=== PATIENT | male | born 1985 | race Caucasian/White ===

== ENCOUNTER 2018-07-09 13:30 | Outpatient (RCR) | payer OTHER, SELFPAY ==
--- NOTE | 2018-02-13 11:03 | OT.OP.EVAL ---
Visit Care Team Role Provider Type Alverto Watson MD Attending Provider Non-Staff Primary Care Provider Specialty: Family Practice Address: [address] [place] [address], [facility] [address], [place], [address] Email: Occupational Therapy Initial Evaluation OT Outpatient Adult Evaluation Start: 02/13/18 09:50 Freq: Status: Active Protocol: Document 02/13/18 09:51 AMS (Rec: 02/13/18 11:02 AMS [email or web address]) General Information Visit Start Time 08:28 Visit Stop Time 09:30 Total Visit Minutes 62 Visit Number 08/22 Plan of Care Dates 02/13/18- 05/08/18 Insurance Information 12 visits/units authorized Treatment Setting Outpatient Care Note Type Initial Evaluation Referring Physician Alverto Watson MD Reason for Referral Residual weakness in right UE. Evaluate & treat as appropriate. Precautions Complex migraine Identification Confirmed Yes: Medical chart Patient Concerns Clicking of right wrist w/ movement, motor coordination Patient Goals Improve function of right hand Medical History Pt is a 32 year-old male referred to outpatient OT status post complex migraine which led to residual weakness of the pt's dominant right upper extremity. Pt reported that he was unable to move his right arm for 3 days while being hospitalized at [facility]. He stated that 'he never lost sensation' of his right arm during this time. Health History reviewed and placed in paper chart. PMH: Headaches, complex migraine, surgery (turboplasty, septoplasty, jaw surgery). Previous Therapy/Therapies Yes History of Therapy Pt is being seen by PT 2 x per week to address proximal UE strength/ROM. 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 Current HEP: arm pulleys, finger walks on wall, resistance band for strengthening (ER, elbow flexion, elbow ext, shoulder ext, scapular pinches/row), and green theraputty for glass laminating operator strengthening. Social History Pt resides with and 11 year-old son in [place], [place] . Therapy Pain Assessment When Pain Assessed Pre-tx Pain Present Pain Reported Right Arm Intensity 2 Scale Used Numeric (1 - 10) Pain Behaviors Facial Grimacing Guarding Holding Area ADLs Comments Increased time; compensatory strategies utilized. Increased reliance L UE. IADLs Comments Impaired. Compensatory strategies. Increased reliance L UE. Vocational Ability Working 40+ hours. [employer]. Completing mostly paperwork tasks since onset of complex migraine. Decreased legibility of handwriting. Pt reported that handwriting legibility 'is worse now'. Skill Level Impaired Meaningful Abilities Pt reports that he is unable to use a pick in his right hand to play the guitar. 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 Decreased legibility of handwriting. Skill Level Impaired Range of Motion Impairments Right UE: Forearm supination, forearm pronation, wrist UD, wrist RD, wrist ext, and wrist flex WNL. Neurological Assessment - Adult Comments Impaired R hand function. Able to oppose thumb to all digit pads bilaterally. Increased concentration required particularly w/ R wrist in extension; decreased speed noted without visual feedback provided. Tendency towards R wrist flexion pattern w/ object manipulation and/or motor planning of the digits of the R hand. Sensation Assessment Summary Comments Pt denied any changes in sensation of R UE. In-Hand Manipulation Right Level of Ability Impaired Level of Ability Impaired Level of Ability Impaired Level of Ability Impaired Level of Ability Impaired Elbow/Forearm Strength Elbow and Forearm Manual Muscle Testing Right Pronation 3+ Fair+ Supination 3 Fair Left Pronation 5 Normal Supination 5 Normal Wrist Strength Wrist Manual Muscle Testing Right Flexion (C7) 3 Fair Extension (C6) 3 Fair Ulnar Deviation 3 Fair Radial Deviation 3 Fair Left Flexion (C7) 5 Normal Extension (C6) 5 Normal Ulnar Deviation 5 Normal Radial Deviation 5 Normal Menu Planner/Hand Strength Menu Planner/Hand Strength Right Menu Planner Dynamometer II 23.3 Lateral Pinch Strengh (lbs) 5.3 Tip Pinch Strength (lbs) 3.0 Comments Lateral Hernandez Pinch: 30-34 Males R hand norms = 26.4 +/- 4.8 ( pounds) Tip Pinch: 30-34 Males R hand norms = 17.6 +/- 6.7 (pounds) Left Menu Planner Dynamometer II 107.3 Lateral Pinch Strengh (lbs) 23.3 Tip Pinch Strength (lbs) 15.0 Comments Lateral Hernandez Pinch: 30-34 Males L hand norms = 26.2 +/- 5.1 ( pounds) Tip Pinch: 30-34 Males L hand norms = 17.6 +/- 4.8 (pounds) 9-Hole Peg Hand Test Hand Right Date of Test 02/13/18 Interpretation Impaired Comments Scoring time = 31.5 sec Performance was > 5 SD above the mean when compared to same aged peers. 30-34 Males R hand norms = 17. 7 +/- 2.5 Left Date of Test 02/13/18 Comments Scoring time = 22.3 sec Performance was > 1 SD above the mean when compared to same aged peers. 30-34 Males L hand norms = 18. 7 +/- 2.2 Goals Treatment Therapeutic exercises. Distal R UE strengthening program initiated. Provided theraband #1 for home use. Reviewed importance of avoidance of compensatory strategies. Forearm supination/pronation strengthening w/ hammer w/ short lever arm w/ elbow in 90 degrees flexion. Wrist ext w/ forearm pronation elbow 90 degrees flex; wrist flex w/ forearm in neutral elbow 90 degrees flex; wrist RD forearm neutral elbow 90 degrees flex ; wrist UD forearm pronation supported on TT w/ elbow 90 degrees flex. Pt denied questions. Education also provided for in-hand manipulation exercises. Pt denied questions. Short Term Goals 1. Patient will complete QuickDASH UE Questionnaire Measures for therapist. 2. Patient will be able to complete the 9-Hole Peg Test with the right hand under 26.0 seconds. 3. Patient will be able to execute passive right wrist flexion stretch, with elbow near full extension and forearm in supination, x 2 separate trials, holding position for 3 seconds, without complaints of pain/ discomfort. 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 Based on patient's verbal report, patient will be able to play personal guitar x 5 minutes with modified independence utilizing pick positioned in the right hand. 2. Patient will be able to complete the 9-Hole Peg Test with the right hand under 22.0 seconds. 3. 5/5 MMT right wrist flexion 4. 5/5 MMT right wrist extension 5. 5/5 MMT right forearm supination 6. Patient will be modified independent with distal UE home exercise program utilizing provided written and visual instructions from therapist. Assessment/Plan Patient Response Good Rehabilitation Potential Good Impairments Identified ADLs Coordination/Dexterity Functional Activities Motor Function Pain Weakness Range of Motion Recreational Activities Meaningful Activities Stiffness Motor Planning Eye-Hand Coordination Treatment Assessment Pt is a 32 year-old male referred to outpatient OT status post complex migraine which led to residual weakness of the pt's dominant right upper extremity. Pt reported that he was unable to move his right arm for 3 days while being hospitalized at [facility]. He stated that 'he never lost sensation' of his right arm during this time. PMH: Headaches, complex migraine, surgery (turboplasty, septoplasty, jaw surgery). Pt is seeing PT 2 x a week for proximal UE strengthening. 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 Current Level of Function: Increased time w/ BADLS w/ increased reliance on L UE. Decreased legibility of handwriting. Unable to use pick in right hand and play guitar on daily basis. Decreased coordination w/ object manipulation/tool use ( e.g., use of paint brush). Evaluation Findings: Decreased ability to efficiently and successfully participate in daily activities/meaningful activities; impaired motor coordination; clicking of wrist w/ movement; impaired in -hand manipulation skills; decreased joint sense; decreased distal UE strength; and pain/discomfort of R UE. Outpatient OT recommended to address these areas so that pt may successfully return to PLOF w/ engagement in daily and meaningful activities in the home and community environments. Home Exercise Program Distal R UE strengthening program initiated. Provided theraband #1 for home use. Reviewed importance of avoidance of compensatory strategies. Forearm supination /pronation strengthening w/ hammer w/ short lever arm w/ elbow in 90 degrees flexion. Wrist ext w/ forearm pronation elbow 90 degrees flex; wrist flex w/ forearm in neutral elbow 90 degrees flex; wrist RD forearm neutral elbow 90 degrees flex; wrist UD forearm pronation supported on TT w/ elbow 90 degrees flex. Pt denied questions. Education also provided for in-hand manipulation exercises. Pt denied questions. Reviewed with Patient Goals Home Exercise Program Patient Understanding Good Comment 12 weeks Treatment Frequency Twice a Week Therapeutic Contents Active Range of Motion Client Education Functional Activities Home Exercise Program Manual Therapy Education Neurodevelopment Treatment Neuromuscular Re-Education Therapeutic Activities Therapeutic Exercises Modalities Modalities As Needed Additional Types of Modalities e-stim, ultrasound, FES Patient Instruction Home Exercise Program Plan of Care Questions/Concerns Other
--- NOTE | 2018-02-16 12:12 | OT.OP.TRT ---
Visit Care Team Role Provider Type Alverto Watson MD Attending Provider Non-Staff Primary Care Provider Specialty: Family Practice Address: [address] [place] [address], [address], [facility] Email: Occupational Therapy Treatment Note OT Outpatient Treatment Note - Adult Start: 02/13/18 09:50 Freq: Status: Active Protocol: Document 02/16/18 11:44 AMS (Rec: 02/16/18 11:50 AMS [id number]) OT Outpatient Adult Treatment Note Session Time Visit Start Time 09:30 Visit Stop Time 10:16 Total Visit Minutes 46 Visit Information Visit Number 09/22 Plan of Care Dates 02/13/18- 05/08/18 Insurance Information 12 visits/units authorized Setting Treatment Setting Outpatient Care Visit Type Note Type Treatment Note General Information General Information Pt is a 32 year-old male referred to outpatient OT status post complex migraine which led to residual weakness of the pt's dominant right upper extremity. Pt reported that he was unable to move his right arm for 3 days while being hospitalized at [facility]. He stated that 'he never lost sensation' of his right arm during this time. - Subjective Identification Type Name Identification Reconciled With Medical Record Observations My arm is on fire this morning per Jagjit. I did my exercises this weekend. Chief Complaint(s) Restricts Loss of Function Moderate Degree Effect on Activity Moderate Degree Effect on Daily Life Moderate Degree Patient Expectation/Goals Improve function of right hand Patient/Caregiver Compliance with Home Good Exercise Program - Objective Objective Measurements Increased discomfort elbow --> distally of R UE; patient reported that he thinks he must have slept wrong on the arm. Decreased ability to sustain pressure w/ opposition between digits particularly 3rd, 4th and 5th digits (5th the most difficult). (+) clicking of wrist noted w/ wrist circles, wrist flexion w / forearm supination without proximal blocking by therapist . Please see below for progress towards meeting established OT goals. QuickDASH UE Outcome Measure Score = 47.73 QuickDASH UE Work Module Score = 50.00 QuickDASH UE Sports/Perfomring Arts Module Score = 56.25 ( guitar, quintero, violin, piano) Short Term Goals 1. Patient will be able to complete the 9-Hole Peg Test with the right hand under 26.0 seconds. 2. Patient will be able to execute passive right wrist flexion stretch, with elbow near full extension and forearm in supination, x 2 separate trials, holding position for 3 seconds, without complaints of pain/ discomfort. 02/16/18= 25% met 3. Based on patient's verbal report, he will be able to open a tight/new jar with the right hand without difficulty on a daily basis. GOALS MET Patient completed QuickDASH UE Questionnaire Measures. *MET 02/16/18 [facility] Goals 1. Based on patient's verbal report, patient will be able to play personal guitar x 5 minutes with modified independence utilizing pick positioned in the right hand. 2. Patient will be able to complete the 9-Hole Peg Test with the right hand under 22.0 seconds. 3. 5/5 MMT right wrist flexion 4. 5/5 MMT right wrist extension 5. 5/5 MMT right forearm supination 6. Patient will be modified independent with distal UE home exercise program utilizing provided written and visual instructions from therapist. [ End ] - Treatment 2 Descriptor HEP Complexity Upgraded 1 Descriptor Right hand/digit motor planning w/ objects Sustained opposition TT hummingbirds - each digit Modifications Required Yes Complexity Upgraded Exercises 9 Descriptor Resistant clothespins Don and doff Side Right Body Position Sitting Sets 2 Repetitions 50 Modifications Required Yes Complexity Upgraded 8 Descriptor Weighted ball pass Drop catch/alt positions Side Both Body Position Sitting Sets 3 Repetitions 10 Resistance 1.1# spherical ball Tolerance Fair Modifications Required Yes Complexity Upgraded 7 Descriptor Digiflex Wrist ext/forearm supported on TT Side Right Body Position Sitting Sets 1 Repetitions 10 cycles Resistance 3.0# Complexity Upgraded 6 Descriptor Wrist Flexion Forearm supination support on arm rest Side Right Body Position Sitting Sets 3 Repetitions 10 Resistance 1.1# spherical ball Tolerance Fair Modifications Required Yes Complexity Upgraded [address]/UD Forearm supported on TT Side Right Body Position Sitting Sets 3 Repetitions 10 Resistance 1.1# spherical ball Tolerance Fair Modifications Required Yes Complexity Upgraded 4 Descriptor Wrist Extension Forearm supported on TT Side Right Body Position Sitting Sets 3 Repetitions 10 Resistance 1.1# spherical ball Tolerance Fair Modifications Required Yes Complexity Upgraded 3 Descriptor Supination/Pronation Arm by side Side Right Body Position Sitting Sets 3 Repetitions 10 Resistance 1.1# spherical ball Modifications Required Yes Complexity Upgraded 2 Descriptor PROM of distal UE Completed by therapist Side Right Tolerance Fair Modifications Required Yes Complexity Upgraded 1 Descriptor PROM of distal UE Forearm supination Wrist extension Side Right Visual Cues Min Cues Verbal Cues Min Cues Tolerance Fair Modifications Required Yes Complexity No Change - Assessment Patient Response to Treatment Good Rehab Potential Good Impairments Identified ADLs Coordination/Dexterity Functional Activities Motor Function Pain Weakness Range of Motion Recreational Activities Meaningful Activities Stiffness Soft Tissue Mobility Motor Planning Eye-Hand Coordination Assessment of Improvement Increased discomfort elbow --> distally of R UE; patient reported that he thinks he must have slept wrong on the arm. Decreased ability to sustain pressure w/ opposition between digits particularly 3rd, 4th and 5th digits (5th the most difficult). Improved ability to passively stretch wrist flexors, as evidenced by increased extension of elbow and ability to sustain position. However, still unable to fully extend digits of R hand and elbow flexion still apparent w/ stretch. Decreased motor planning of the right hand. Decreased hand /digit strength. (+) carry- over of home exercise program. Decreased ability to participate in meaningful activities in the home, work and community environments. Increased reliance on left UE/ hand. Home Exercise Program Upgraded HEP w/ focus on object manipulation and addressing sustained opposition. Patient denied questions. No further changes were made to HEP given increased pain/discomfort R elbow --> distally. Reviewed with Patient/Caregiver Goals Progress Being Made Home Exercise Program Patient/Caregiver Understanding Good - Plan Therapy Recommendations Continue with Current Program Advance per Rehabilitation Protocol Additional Therapy Recommendations Consult w/ PT
--- NOTE | 2018-02-26 14:20 | OT.OP.TRT ---
Visit Care Team Role Provider Type Alverto Watson MD Attending Provider Non-Staff Primary Care Provider Specialty: Family Practice Address: [address] [place] [address], [address], On license of [facility] Email: Occupational Therapy Treatment Note OT Outpatient Treatment Note - Adult Start: 02/13/18 09:50 Freq: Status: Active Protocol: Document 02/26/18 13:54 AMS (Rec: 02/26/18 14:20 AMS [email or web address]) OT Outpatient Adult Treatment Note Session Time Visit Start Time 12:30 Visit Stop Time 13:18 Total Visit Minutes 48 Visit Information Visit Number 10/20 Plan of Care Dates 02/13/18- 05/08/18 Insurance Information 12 visits/units authorized Setting Treatment Setting Outpatient Care Visit Type Note Type Treatment Note General Information General Information Pt is a 32 year-old male referred to outpatient OT status post complex migraine which led to residual weakness of the pt's dominant right upper extremity. Pt reported that he was unable to move his right arm for 3 days while being hospitalized at [facility]. He stated that 'he never lost sensation' of his right arm during this time. - Subjective Identification Type Name Identification Reconciled With Medical Record Observations I haven't even tried the violin yet per Jagjit. I have been working on this arm at home. I still don't have an appointment for a neurologist; I am waiting on my doctor. Chief Complaint(s) Restricts Loss of Function Moderate Degree Effect on Activity Moderate Degree Effect on Daily Life Moderate Degree Patient Expectation/Goals Improve function of right hand Patient/Caregiver Compliance with Home Good Exercise Program - Objective Objective Measurements Improving ability to sustain pressure w/ opposition between digits; has progressed to maintaining pressure w/ active flexion and extension of each digit w/ thumb. Patient indicated that his 1st, 2nd and 3rd digits are improving relative to motor coordination ; however, he is still having trouble coordinating the 4th and 5th digits. Education completed in re: functional grasps/development of 2 sides of hand/functional daily tasks . Increasing distal UE strength noted; thus, exercises advanced. Decreased speed of motor response with the right hand; increased concentration required w/ object manipulation. Decreased inhand manipulation skills w/ decreased motor coordination w/ wrist in extension. Please see below for progress towards meeting established OT goals. 02/16/18 QuickDASH UE Outcome Measure Score = 47.73 QuickDASH UE Work Module Score = 50.00 QuickDASH UE Sports/Perfomring Arts Module Score = 56.25 ( guitar, quintero, violin, piano) Short Term Goals 1. Patient will be able to complete the 9-Hole Peg Test with the right hand under 26.0 seconds. 2. Patient will be able to execute passive right wrist flexion stretch, with elbow near full extension and forearm in supination, x 2 separate trials, holding position for 3 seconds, without complaints of pain/ discomfort. 02/26/18= 25% met 3. Based on patient's verbal report, he will be able to open a tight/new jar with the right hand without difficulty on a daily basis. GOALS MET Patient completed QuickDASH UE Questionnaire Measures. 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 Based on patient's verbal report, patient will be able to play personal guitar x 5 minutes with modified independence utilizing pick positioned in the right hand. 02/26/18= 25% met 2. Patient will be able to complete the 9-Hole Peg Test with the right hand under 22.0 seconds. 02/26/18= 25% met 3. 5/5 MMT right wrist flexion 4. 5/5 MMT right wrist extension 5. 5/5 MMT right forearm supination 6. Patient will be modified independent with distal UE home exercise program utilizing provided written and visual instructions from therapist. 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 Toothpicks Separation of 2 sides of hand Modifications Required Yes Complexity Upgraded Exercises 9 Descriptor Resistant clothespins Side Right Body Position Sitting Sets 2 Repetitions 50 Modifications Required Yes Complexity No Change 8 Descriptor Weighted ball work Eye-hand coordination work 1.1 # 3 x 10 each (in front/to the right of body) Pick-up and drop 3.3# 2 x 10 / 2.2# 1x 10 (spherical grasp) Pick-up and drop 2.2# 2 x 10 ( cylindrical grasp) Side Right Body Position Sitting Tolerance Fair Modifications Required Yes Complexity Upgraded 7 Descriptor Digiflex Wrist ext/forearm supported on TT Side Right Body Position Sitting Sets 1 Repetitions 10 cycles Resistance 3.0# Complexity Upgraded 6 Descriptor Wrist Flexion Forearm supination support on arm rest Side Right Body Position Sitting Sets 3 Repetitions 10 Resistance 2.2# spherical ball Tolerance Fair Modifications Required Yes Complexity Upgraded [address]/UD Forearm supported on TT Side Right Body Position Sitting Sets 3 Repetitions 10 Resistance 2.2# spherical ball Tolerance Fair Modifications Required Yes Complexity Upgraded 4 Descriptor Wrist Extension Forearm supported on TT Side Right Body Position Sitting Sets 3 Repetitions 10 Resistance 2.2# spherical ball Tolerance Fair Modifications Required Yes Complexity Upgraded 3 Descriptor Supination/Pronation Arm by side Side Right Body Position Sitting Sets 3 Repetitions 10 Resistance 2.2# spherical ball Modifications Required Yes Complexity Upgraded 2 Descriptor PROM of distal UE Side Right Tolerance Fair Modifications Required Yes Complexity No Change 1 Descriptor PROM of distal UE Forearm supination Wrist extension Side Right Visual Cues Min Cues Verbal Cues Min Cues Tolerance Fair Modifications Required Yes Complexity No Change - Assessment Patient Response to Treatment Good Rehab Potential Good Impairments Identified ADLs Coordination/Dexterity Functional Activities Motor Function Pain Weakness Range of Motion Recreational Activities Meaningful Activities Stiffness Soft Tissue Mobility Motor Planning Eye-Hand Coordination Assessment of Overall Progress Improving Assessment of Improvement Patient indicated that his 1st , 2nd and 3rd digits are improving relative to motor coordination; however, he is still having trouble coordinating the 4th and 5th digits. Increasing distal UE strength compared to previous treatment session; however, (+ ) fatigue and decreased ability to sustain manipulation of objects > 2.2# in weight repetitively without rest breaks with and without proximal upper extremity support. Decreased speed of motor response with the right hand; increased concentration required w/ object manipulation. Decreased eye-hand coordination. Decreased inhand manipulation skills w/ decreased motor coordination w/ wrist in extension. Please see below for progress towards meeting established OT goals. Home Exercise Program Upgraded HEP; instructed on individual digit strengthening and focusing on ulnar side of hand/multiple object manipulation. Pt denied questions. Reviewed with Patient/Caregiver Goals Progress Being Made Home Exercise Program Patient/Caregiver Understanding Good - Plan Therapy Recommendations Continue with Current Program Advance per Rehabilitation Protocol Additional Therapy Recommendations Consult w/ PT
--- NOTE | 2018-03-13 12:24 | OT.OP.TRT ---
Visit Care Team Role Provider Type Alverto Watson MD Attending Provider Non-Staff Primary Care Provider Specialty: Family Practice Address: [address] [place] [address], [address], [facility] Email: Occupational Therapy Treatment Note OT Outpatient Treatment Note - Adult Start: 02/13/18 09:50 Freq: Status: Active Protocol: Document 03/12/18 03:20 AMS (Rec: 03/13/18 12:24 AMS [email or web address]) OT Outpatient Adult Treatment Note Session Time Visit Start Time 14:20 Visit Stop Time 15:10 Total Visit Minutes 50 Visit Information Visit Number [id number] Plan of Care Dates 02/13/18- 05/08/18 Insurance Information 12 visits/units authorized Setting Treatment Setting Outpatient Care Visit Type Note Type Treatment Note General Information General Information Pt is a 32 year-old male referred to outpatient OT status post complex migraine which led to residual weakness of the pt's dominant right upper extremity. Pt reported that he was unable to move his right arm for 3 days while being hospitalized at [facility]. He stated that 'he never lost sensation' of his right arm during this time. - Subjective Identification Type Name Identification Reconciled With Medical Record Observations I am still having a hard time with my fingers especially the fourth and fifth fingers. They do not do what I tell them to do per Jagjit. Chief Complaint(s) Restricts Loss of Function Moderate Degree Effect on Activity Moderate Degree Effect on Daily Life Moderate Degree Patient Expectation/Goals Improve function of right hand Patient/Caregiver Compliance with Home Good Exercise Program - Objective Objective Measurements Improving ability to sustain pressure w/ opposition between digits; has progressed to maintaining pressure w/ active flexion and extension of each digit w/ thumb. Patient indicated that his 1st, 2nd and 3rd digits are improving relative to motor coordination ; however, he is still having trouble coordinating the 4th and 5th digits. Decreased separation of 2 sides of hand; decreased eye-hand coordination and reaction time w/ the right hand. Decreased speed and efficiency w/ motor planning between 2 tasks and w / ability to maintain reaction time/efficiency w/ consecutive repetitions when utilizing the right hand. Please see below for progress towards meeting established OT goals. 02/16/18 QuickDASH UE Outcome Measure Score = 47.73 QuickDASH UE Work Module Score = 50.00 QuickDASH UE Sports/Perfomring Arts Module Score = 56.25 ( guitar, quintero, violin, piano) Short Term Goals 1. Patient will be able to complete the 9-Hole Peg Test with the right hand under 26.0 seconds. 2. Patient will be able to execute passive right wrist flexion stretch, with elbow near full extension and forearm in supination, x 2 separate trials, holding position for 3 seconds, without complaints of pain/ discomfort. 03/12/18= 50% met 3. Based on patient's verbal report, he will be able to open a tight/new jar with the right hand without difficulty on a daily basis. GOALS MET Patient completed QuickDASH UE Questionnaire Measures. *MET 02/16/18 Secretary Administrative Assistant Goals 1. Based on patient's verbal report, patient will be able to play personal guitar x 5 minutes with modified independence utilizing pick positioned in the right hand. 03/12/18= 25% met 2. Patient will be able to complete the 9-Hole Peg Test with the right hand under 22.0 seconds. 02/26/18= 25% met 3. 5/5 MMT right wrist flexion 4. 5/5 MMT right wrist extension 5. 5/5 MMT right forearm supination 6. Patient will be modified independent with distal UE home exercise program utilizing provided written and visual instructions from therapist. [ End ] - Treatment 2 Descriptor HEP Complexity Upgraded 1 Descriptor Object manipulation Get-a-tying in machine operator - R/above head Separation of 2 sides of hand Washers Small pegs Modifications Required Yes Complexity Upgraded Exercises 9 Descriptor Resistant clothespins Right of body Side Right Body Position Sitting Sets 2 Repetitions 50 Modifications Required Yes Complexity Upgraded 8 Descriptor Eye-hand coordination Weighted ball 3.3# *Forearm neutral *Forearm supination *Forearm pronation Side Right Body Position Sitting Tolerance Good Modifications Required Yes Complexity Upgraded 6 Descriptor Wrist Flexion Forearm supination support on arm rest Side Right Body Position Sitting Sets 3 Repetitions 10 Resistance 2.2# spherical ball Tolerance Fair Modifications Required Yes Complexity Upgraded [address]/UD Forearm supported on TT Side Right Body Position Sitting Sets 3 Repetitions 10 Resistance 2.2# spherical ball Tolerance Fair Modifications Required Yes Complexity Upgraded 4 Descriptor Wrist Extension Forearm supported on TT Side Right Body Position Sitting Sets 3 Repetitions 10 Resistance 2.2# spherical ball Tolerance Fair Modifications Required Yes Complexity Upgraded 3 Descriptor Supination/Pronation Arm by side Side Right Body Position Sitting Sets 3 Repetitions 10 Resistance 2.2# spherical ball Modifications Required Yes Complexity Upgraded 1 Descriptor PROM of distal UE Forearm supination Wrist extension Side Right Visual Cues Min Cues Verbal Cues Min Cues Tolerance Fair Modifications Required Yes Complexity No Change - Assessment Patient Response to Treatment Good Rehab Potential Good Impairments Identified ADLs Coordination/Dexterity Functional Activities Motor Function Pain Weakness Range of Motion Recreational Activities Meaningful Activities Stiffness Soft Tissue Mobility Motor Planning Eye-Hand Coordination Assessment of Overall Progress Improving Assessment of Improvement Patient indicated that his 1st , 2nd and 3rd digits are improving relative to motor coordination; however, he is still having trouble coordinating the 4th and 5th digits. Decreased speed of motor response with the right hand; increased concentration required w/ object manipulation. Decreased eye- hand coordination. Decreased inhand manipulation skills w/ decreased motor coordination w / wrist in extension. (+) tendency towards forearm supination with multiple object manipulation. Decreased separation of digits w/ motor planning as needed w/ playing musical instruments. Home Exercise Program Upgraded HEP. Focus on functional coordination and ability to motor plan without use of compensatory strategies . Increased focus on motor planning without visual feedback and w/ UE in different positions. Pt denied questions. Reviewed with Patient/Caregiver Goals Progress Being Made Home Exercise Program Patient/Caregiver Understanding Good - Plan Therapy Recommendations Continue with Current Program Advance per Rehabilitation Protocol Additional Therapy Recommendations Consult w/ PT
--- NOTE | 2018-03-27 13:58 | OT.OP.TRT ---
Visit Care Team Role Provider Type Alverto Watson MD Attending Provider Non-Staff Primary Care Provider Specialty: Family Practice Address: [address] [place] [address], [address], [facility] Email: Occupational Therapy Treatment Note OT Outpatient Treatment Note - Adult Start: 02/13/18 09:50 Freq: Status: Active Protocol: Document 03/26/18 03:30 AMS (Rec: 03/27/18 13:58 AMS [email or web address]) OT Outpatient Adult Treatment Note Session Time Visit Start Time 14:40 Visit Stop Time 15:30 Total Visit Minutes 50 Visit Information Visit Number 12/20 Plan of Care Dates 02/13/18- 05/08/18 Insurance Information 12 visits/units authorized Setting Treatment Setting Outpatient Care Visit Type Note Type Treatment Note General Information General Information Pt is a 32 year-old male referred to outpatient OT status post complex migraine which led to residual weakness of the pt's dominant right upper extremity. Pt reported that he was unable to move his right arm for 3 days while being hospitalized at [facility]. He stated that 'he never lost sensation' of his right arm during this time. - Subjective Identification Type Name Identification Reconciled With Medical Record Observations After visit summary March 18, 2018. Result Impression: No acute infarct, intracranial mass lesion, or hemorrhage. No perfusion deficit. Prominent area of T1 hyperintensity in the pituitary gland with hypoenhancement. This finding is incompletely evaluated on this exam but could possibly represent a microadenoma. Clinical correlation for an endocrinopathy is recommended. Plan: EMG; continue PT/OT. Per Jagjit, EMG indicated compression of the median nerve and that the DO wanted him to wear 'a brace at night' and 'avoid repetitive wrist movements'. Chief Complaint(s) Restricts Loss of Function Moderate Degree Effect on Activity Moderate Degree Effect on Daily Life Moderate Degree Patient Expectation/Goals Improve function of right hand Patient/Caregiver Compliance with Home Good Exercise Program - Objective Objective Measurements Max difficulty w/ execution of R flat fist; decreased active extension of DIP joints primarily of the 4th and 5th digits. Decreased active flexion of PIPJ of 2-5 digits of the R hand in comparison to left hand. Pt continues to have difficulty coordinating the 4th and 5th digits. Decreased separation of 2 sides of hand; decreased eye- hand coordination and reaction time w/ the right hand. Reproduction of symptoms w/ familiar nerve gliding exercises primarily w/ wrist extension. However it is important to note patient was initially unable to complete PROM wrist exercises w/ near full elbow extension and forearm supination (wrist flexion). Please see below for progress towards meeting established OT goals. 02/16/18 QuickDASH UE Outcome Measure Score = 47.73 QuickDASH UE Work Module Score = 50.00 QuickDASH UE Sports/Perfomring Arts Module Score = 56.25 ( guitar, quintero, violin, piano) Short Term Goals 1. Patient will be able to complete the 9-Hole Peg Test with the right hand under 26.0 seconds. 2. Patient will be able to execute passive right wrist flexion stretch, with elbow near full extension and forearm in supination, x 2 separate trials, holding position for 3 seconds, without complaints of pain/ discomfort. 03/26/18= 50% met 3. Based on patient's verbal report, he will be able to open a tight/new jar with the right hand without difficulty on a daily basis. GOALS MET Patient completed QuickDASH UE Questionnaire Measures. *MET 02/16/18 Production Laborer Goals 1. Based on patient's verbal report, patient will be able to play personal guitar x 5 minutes with modified independence utilizing pick positioned in the right hand. 03/26/18= 25% met 2. Patient will be able to complete the 9-Hole Peg Test with the right hand under 22.0 seconds. 02/26/18= 25% met 3. 5/5 MMT right wrist flexion 4. 5/5 MMT right wrist extension 5. 5/5 MMT right forearm supination 6. Patient will be modified independent with distal UE home exercise program utilizing provided written and visual instructions from therapist. 03/26/18= 25% met [ End ] - Treatment 2 Descriptor HEP Flat fist work Nerve glides Separation of 2 sides of hand Complexity Upgraded 1 Descriptor Object manipulation Get-a-toy painter 2 sides of hand Washers Small pegs Tendon glides Modifications Required Yes Complexity Upgraded Exercises 9 Descriptor Resistant clothespins Right of body Side Right Body Position Sitting Sets 2 Repetitions 50 Modifications Required Yes Complexity Upgraded 8 Descriptor Eye-hand coordination Weighted ball 3.3# *Forearm neutral *Forearm supination *Forearm pronation Side Right Body Position Sitting Tolerance Good Modifications Required Yes Complexity No Change [address]/UD Side Right Body Position Sitting Sets 3 Repetitions 10 Resistance 3.3# spherical ball Tolerance Fair Modifications Required Yes Complexity Upgraded 4 Descriptor Wrist Extension Side Right Body Position Sitting Sets 3 Repetitions 10 Resistance 3.3# spherical ball Tolerance Fair Modifications Required Yes Complexity Upgraded 3 Descriptor Supination/Pronation Arm by side Side Right Body Position Sitting Sets 3 Repetitions 10 Resistance 3.3# spherical ball Modifications Required Yes Complexity Upgraded 1 Descriptor PROM of distal UE Side Right Visual Cues Min Cues Verbal Cues Min Cues Tolerance Fair Modifications Required Yes Complexity No Change - Assessment Patient Response to Treatment Good Rehab Potential Good Impairments Identified ADLs Coordination/Dexterity Functional Activities Motor Function Pain Weakness Range of Motion Recreational Activities Meaningful Activities Stiffness Soft Tissue Mobility Motor Planning Eye-Hand Coordination Assessment of Overall Progress Improving Assessment of Improvement Decreased speed of motor response with the right hand; increased concentration required w/ object manipulation. Decreased eye- hand coordination. Decreased inhand manipulation skills w/ decreased motor coordination w / wrist in extension. (+) tendency towards forearm supination with multiple object manipulation. Decreased separation of digits w/ motor planning as needed w/ playing musical instruments. Decreased ability to execute tendon gliding exercises. Home Exercise Program Please see above for additional details. Reviewed with Patient/Caregiver Goals Progress Being Made Home Exercise Program Patient/Caregiver Understanding Good - Plan Therapy Recommendations Continue with Current Program Advance per Rehabilitation Protocol Additional Therapy Recommendations Consult w/ PT
--- NOTE | 2018-04-21 13:43 | OT.OP.TRT ---
Visit Care Team Role Provider Type Alverto Watson MD Attending Provider Non-Staff Primary Care Provider Specialty: Family Practice Address: [address] [place] [address], [address], [facility] Email: Occupational Therapy Treatment Note OT Outpatient Treatment Note - Adult Start: 02/13/18 09:50 Freq: Status: Active Protocol: Document 04/21/18 13:28 AMS (Rec: 04/21/18 13:43 AMS [email or web address]) OT Outpatient Adult Treatment Note Session Time Visit Start Time 12:30 Visit Stop Time 13:48 Total Visit Minutes 48 Visit Information Visit Number 01/20 Plan of Care Dates 02/13/18- 05/08/18 Insurance Information 12 visits/units authorized Setting Treatment Setting Outpatient Care Visit Type Note Type Treatment Note General Information General Information Pt is a 32 year-old male referred to outpatient OT status post complex migraine which led to residual weakness of the pt's dominant right upper extremity. Pt reported that he was unable to move his right arm for 3 days while being hospitalized at [facility]. He stated that 'he never lost sensation' of his right arm during this time. - Subjective Identification Type Name Identification Reconciled With Medical Record Observations I have MRIs on Friday. I have a contrast and noncontrast MRI. I have been wearing the splints at night per Jagjit. Chief Complaint(s) Restricts Loss of Function Moderate Degree Effect on Activity Moderate Degree Effect on Daily Life Moderate Degree Patient Expectation/Goals Improve function of right hand Patient/Caregiver Compliance with Home Good Exercise Program - Objective Objective Measurements Min difficulty w/ execution of R flat fist; however, able to execute w/ decreased pressure applied to the palm through fingertips 2-5 particularly through the 4th and 5th. Decreased active flexion of PIPJ of 2-5 digits of the R hand in comparison to left hand. Unable to execute active DIPJ flexion of digits of R hand w/ palm on TT; slight flex noted of 1,2,3. No flex noted w/ 4 and 5. Unable to maintain w/ [id number]. Unable to palm standard basketball w/ R compared to PLOF. Decreased separation of 2 sides of hand; decreased eye -hand coordination and reaction time w/ the right hand. Please see below for progress towards meeting established OT goals. 02/16/18 QuickDASH UE Outcome Measure Score = 47.73 QuickDASH UE Work Module Score = 50.00 QuickDASH UE Sports/Perfomring Arts Module Score = 56.25 ( guitar, quintero, violin, piano) Short Term Goals 1. Patient will be able to complete the 9-Hole Peg Test with the right hand under 26.0 seconds. 2. Patient will be able to execute passive right wrist flexion stretch, with elbow near full extension and forearm in supination, x 2 separate trials, holding position for 3 seconds, without complaints of pain/ discomfort. 04/21/18= 50% met; min c/o pain 3. Based on patient's verbal report, he will be able to open a tight/new jar with the right hand without difficulty on a daily basis. 04/21/18= 25% met. GOALS MET Patient completed QuickDASH UE Questionnaire Measures. *MET 02/16/18 Penitentiary Goals 1. Based on patient's verbal report, patient will be able to play personal guitar x 5 minutes with modified independence utilizing pick positioned in the right hand. 04/21/18= 25% met 2. Patient will be able to complete the 9-Hole Peg Test with the right hand under 22.0 seconds. 02/26/18= 25% met 3. 5/5 MMT right wrist flexion 4. 5/5 MMT right wrist extension 5. 5/5 MMT right forearm supination 6. Patient will be modified independent with distal UE home exercise program utilizing provided written and visual instructions from therapist. 04/21/18= 25% met [ End ] - Treatment 2 Descriptor HEP Palming bball DIPJ flex w/ palm on TT Pressing fingertips into palm w/ flat fist Complexity Upgraded 1 Descriptor Object manipulation Get-a-data entry manager 2 sides of hand Small pegs Tendon glides Modifications Required Yes Complexity Upgraded Exercises 9 Descriptor Resistant clothespins Right of body Side Right Body Position Sitting Sets 2 Repetitions 50 Modifications Required Yes Complexity No Change 8 Descriptor Eye-hand coordination Weighted ball 4.4# Trampoline 2 x 10 500 gm 2 x 10 Side Right Body Position Sitting Tolerance Good Modifications Required Yes Complexity Upgraded 6 Descriptor Wrist Flexion Forearm supination support on arm rest Side Right Body Position Sitting Sets 3 Repetitions [address]/UD Side Right Body Position Sitting Sets 3 Repetitions 10 Resistance 3.3# spherical ball Tolerance Fair Modifications Required Yes Complexity No Change 4 Descriptor Wrist Extension Side Right Body Position Sitting Sets 3 Repetitions 10 Resistance 4.4# spherical ball Tolerance Fair Modifications Required Yes Complexity Upgraded 3 Descriptor Supination/Pronation Arm by side Side Right Body Position Sitting Sets 3 Repetitions 10 Resistance 4.4# spherical ball Modifications Required Yes Complexity Upgraded 1 Descriptor PROM of distal UE Side Right Visual Cues Min Cues Verbal Cues Min Cues Tolerance Fair Modifications Required Yes Complexity No Change - Assessment Patient Response to Treatment Good Rehab Potential Good Impairments Identified ADLs Coordination/Dexterity Functional Activities Motor Function Pain Weakness Range of Motion Recreational Activities Meaningful Activities Stiffness Soft Tissue Mobility Motor Planning Eye-Hand Coordination Assessment of Overall Progress Improving Assessment of Improvement Increased concentration required w/ object manipulation; decreased coordination compared to PLOF. Decreased in-hand manipulation skills w/ decreased motor coordination w / wrist in extension. (+) decreasing forearm supination with multiple object manipulation; however, continued need to work on translation and palmar object manipulation. Decreased separation of digits w/ motor planning as needed w/ playing musical instruments. Decreased ability to execute isolated tendon gliding exercises. Upgrading of HEP. Home Exercise Program Please see treatment section above for additional details. Pt denied questions. Reviewed with Patient/Caregiver Goals Progress Being Made Home Exercise Program Patient/Caregiver Understanding Good - Plan Therapy Recommendations Continue with Current Program Advance per Rehabilitation Protocol Additional Therapy Recommendations Consult w/ PT
--- NOTE | 2018-04-30 08:21 | OT.OP.TRT ---
Visit Care Team Role Provider Type Alverto Watson MD Attending Provider Non-Staff Primary Care Provider Specialty: Family Practice Address: [address] [place] [address], [address], [facility] Email: Occupational Therapy Treatment Note OT Outpatient Treatment Note - Adult Start: 02/13/18 09:50 Freq: Status: Active Protocol: Document 04/28/18 03:30 AMS (Rec: 04/30/18 08:21 AMS [email or web address]) OT Outpatient Adult Treatment Note Session Time Visit Start Time 12:30 Visit Stop Time 13:21 Total Visit Minutes 51 Visit Information Visit Number [id number] Plan of Care Dates 02/13/18- 05/08/18 Insurance Information 12 visits/units authorized Setting Treatment Setting Outpatient Care Visit Type Note Type Treatment Note General Information General Information Pt is a 32 year-old male referred to outpatient OT status post complex migraine which led to residual weakness of the pt's dominant right upper extremity. Pt reported that he was unable to move his right arm for 3 days while being hospitalized at [facility]. He stated that 'he never lost sensation' of his right arm during this time. - Subjective Identification Type Name Identification Reconciled With Medical Record Observations I broke the MRI machine. I had to come back on Friday to get the MRIs done per Jagjit. Chief Complaint(s) Restricts Loss of Function Moderate Degree Effect on Activity Moderate Degree Effect on Daily Life Moderate Degree Patient Expectation/Goals Improve function of right hand Patient/Caregiver Compliance with Home Good Exercise Program - Objective Objective Measurements Initiated proprioceptive/ kinesthetic treatment approach to digits 4/5 for flat fist; (+) response to treatment w/ ability to execute flat fist w / engagement of 4th and 5th digits w/ increased concentration and effort (5th digit slight PIPJ flex initially). Improving active flexion of PIPJ of 2-5 digits of the R hand. Unable to execute active DIPJ flexion of digits of R hand w/ palm on TT; flex noted of 2,3. Slight flex 4 and 5 following initiated resisted/ proprioceptive/kinesthetic exercises. Continued decreased separation of 2 sides of hand , as evidenced by increased concentration required w/ management of multiple objects . Please see below for progress towards meeting established OT goals. 02/16/18 QuickDASH UE Outcome Measure Score = 47.73 QuickDASH UE Work Module Score = 50.00 QuickDASH UE Sports/Perfomring Arts Module Score = 56.25 ( guitar, quintero, violin, piano) Short Term Goals 1. Patient will be able to complete the 9-Hole Peg Test with the right hand under 26.0 seconds. 2. Patient will be able to execute passive right wrist flexion stretch, with elbow near full extension and forearm in supination, x 2 separate trials, holding position for 3 seconds, without complaints of pain/ discomfort. 04/28/18= 50% met; min c/o pain 3. Based on patient's verbal report, he will be able to open a tight/new jar with the right hand without difficulty on a daily basis. 04/28/18= 25% met. GOALS MET Patient completed QuickDASH UE Questionnaire Measures. 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 Based on patient's verbal report, patient will be able to play personal guitar x 5 minutes with modified independence utilizing pick positioned in the right hand. 04/28/18= 25% met 2. Patient will be able to complete the 9-Hole Peg Test with the right hand under 22.0 seconds. 02/26/18= 25% met 3. 5/5 MMT right wrist flexion 4. 5/5 MMT right wrist extension 5. 5/5 MMT right forearm supination 6. Patient will be modified independent with distal UE home exercise program utilizing provided written and visual instructions from therapist. 04/28/18= 25% met; HEP upgraded [ End ] - Treatment 2 Descriptor HEP Upgraded quarter/senior control systems engineer object between digits w/ shift L<->R hand. Complexity Upgraded 1 Descriptor Object manipulation Get-a-form layer 2 sides of hand Small pegs Tendon glides Chip L<->R shift Modifications Required Yes Complexity Upgraded Exercises 11 Descriptor Kinesthetic 4th/5th digits Side Right Body Position Sitting Complexity Upgraded 10 Descriptor Proprioceptive 4th/5th digits Side Right Body Position Sitting Complexity Upgraded 9 Descriptor Resistant clothespins 3 at 1 time Side Right Body Position Sitting Sets 2 Repetitions 50 Modifications Required Yes Complexity Upgraded 8 Descriptor Eye-hand coordination Weighted ball 4.4# Trampoline 2 x 10 500 gm 2 x 10 Side Right Body Position Sitting Tolerance Good Modifications Required Yes Complexity Upgraded [address]/UD Side Right Body Position Sitting Sets 3 Repetitions 10 Resistance 4.4# spherical ball Tolerance Fair Modifications Required Yes Complexity Upgraded 4 Descriptor Wrist Ext/Flex Side Right Body Position Sitting Sets 3 Repetitions 10 Resistance 4.4# spherical ball Tolerance Fair Modifications Required Yes Complexity No Change 3 Descriptor Supination/Pronation Arm by side Side Right Body Position Sitting Sets 3 Repetitions 10 Resistance 4.4# spherical ball Modifications Required Yes Complexity No Change 1 Descriptor PROM of distal UE Side Right Visual Cues Min Cues Verbal Cues Min Cues Tolerance Fair Modifications Required Yes Complexity No Change - Assessment Patient Response to Treatment Good Rehab Potential Good Impairments Identified ADLs Coordination/Dexterity Functional Activities Motor Function Pain Weakness Range of Motion Recreational Activities Meaningful Activities Stiffness Soft Tissue Mobility Motor Planning Eye-Hand Coordination Assessment of Overall Progress Improving Assessment of Improvement Increased concentration required w/ object manipulation; decreased coordination of R hand/UE compared to PLOF. Decreased in -hand manipulation skills. Decreased awareness of 4th/5th digits in space; positive response to proprioceptive feedback to 4th and 5th digits w/ flat fist. Positive response to proprioceptive/ kinesthetic feedback to 4th and 5th digits w/ isolated DIPJ flexion w/ palm on table. Based on response, recommend continuation of proprioceptive /kinesthetic approach to rehabilitation. Decreased ability to grade force and isolate motor planning of digits as needed for return to meaningful activities ( playing of musical instruments ). Home Exercise Program Please see treatment section above for additional details. Pt denied questions. Reviewed with Patient/Caregiver Goals Progress Being Made Home Exercise Program Patient/Caregiver Understanding Good - Plan Therapy Recommendations Continue with Current Program Advance per Rehabilitation Protocol Additional Therapy Recommendations Consult w/ PT Occupational Therapy Assessment OT Outpatient Muscle Testing Start: 02/13/18 09:50 Freq: Status: Active Protocol: Document 04/28/18 03:30 AMS (Rec: 04/30/18 08:21 AMS [email or web address]) Elbow/Forearm Strength Elbow and Forearm Manual Muscle Testing Right Pronation 3+ Fair+ Supination 3 Fair Left Pronation 5 Normal Supination 5 Normal Wrist Strength Wrist Manual Muscle Testing Right Flexion (C7) 3 Fair Extension (C6) 3 Fair Ulnar Deviation 3 Fair Radial Deviation 3 Fair Left Flexion (C7) 5 Normal Extension (C6) 5 Normal Ulnar Deviation 5 Normal Radial Deviation 5 Normal Art Tracer/Hand Strength Art Tracer/Hand Strength Right Art Tracer Dynamometer II 23.3 Lateral Pinch Strengh (lbs) 5.3 Tip Pinch Strength (lbs) 3.0 Comments Lateral Hernandez Pinch: 30-34 Males R hand norms = 26.4 +/- 4.8 ( pounds) Tip Pinch: 30-34 Males R hand norms = 17.6 +/- 6.7 (pounds) Left Art Tracer Dynamometer II 107.3 Lateral Pinch Strengh (lbs) 23.3 Tip Pinch Strength (lbs) 15.0 Comments Lateral Hernandez Pinch: 30-34 Males L hand norms = 26.2 +/- 5.1 ( pounds) Tip Pinch: 30-34 Males L hand norms = 17.6 +/- 4.8 (pounds) Occupational Therapy Assessment OT Outpatient Standardized Assessments Start: 02/13/18 09:50 Freq: Status: Active Protocol: Document 04/28/18 03:30 AMS (Rec: 04/30/18 08:21 AMS [email or web address]) 9-Hole Peg Hand Test Hand Right Date of Test 02/13/18 Interpretation Impaired Comments Scoring time = 31.5 sec Performance was > 5 SD above the mean when compared to same aged peers. 30-34 Males R hand norms = 17. 7 +/- 2.5 Left Date of Test 02/13/18 Comments Scoring time = 22.3 sec Performance was > 1 SD above the mean when compared to same aged peers. 30-34 Males L hand norms = 18. 7 +/- 2.2
--- NOTE | 2018-05-05 16:44 | OT.OP.TRT ---
Visit Care Team Role Provider Type Alverto Watson MD Attending Provider Non-Staff Primary Care Provider Specialty: Family Practice Address: [address] [place] [address], [address], [facility] Email: Occupational Therapy Treatment Note OT Outpatient Treatment Note - Adult Start: 02/13/18 09:50 Freq: Status: Active Protocol: Document 05/05/18 16:19 AMS (Rec: 05/05/18 16:44 AMS [email or web address]) OT Outpatient Adult Treatment Note Session Time Visit Start Time 12:30 Visit Stop Time 13:20 Total Visit Minutes 50 Visit Information Visit Number 03/[id number] Plan of Care Dates 02/13/18- 05/08/18 Insurance Information 12 visits/units authorized Setting Treatment Setting Outpatient Care Visit Type Note Type Treatment Note General Information General Information Pt is a 32 year-old male referred to outpatient OT status post complex migraine which led to residual weakness of the pt's dominant right upper extremity. Pt reported that he was unable to move his right arm for 3 days while being hospitalized at [facility]. He stated that 'he never lost sensation' of his right arm during this time. - Subjective Identification Type Name Identification Reconciled With Medical Record Observations I am still waiting on the results of my MRI. This wrist still cracks no matter what direction I move it in. I still wear the brace if it really is bothering me per Jagjit. Chief Complaint(s) Restricts Loss of Function Moderate Degree Effect on Activity Moderate Degree Effect on Daily Life Moderate Degree Patient Expectation/Goals Improve function of right hand Patient/Caregiver Compliance with Home Good Exercise Program - Objective Objective Measurements Initiated proprioceptive/ kinesthetic treatment approach to digits 4 and 5 for separation of the 2 sides of the hand given h/o positive response to ability to execute flat fist w/ this treatment approach. Decreased ability to isolate flexion of digits; (+ ) tension of all digits when addressing digit isolation. (+ ) response to pad work w/ improved ability to isolate bear claw to 'cage' w/ maintaining heel of hand on TT . Improving fine motor coordination and strength of distal UE; please refer to 9- Hole Peg test and MMT test results. Please see below for progress towards meeting established OT goals. 02/16/18 QuickDASH UE Outcome Measure Score = 47.73 QuickDASH UE Work Module Score = 50.00 QuickDASH UE Sports/Perfomring Arts Module Score = 56.25 ( guitar, quintero, violin, piano) Short Term Goals 1. Based on patient's verbal report, he will be able to open a tight/new jar with the right hand without difficulty on a daily basis. 04/28/18= 25% met. 2. Patient will be able to weight shift L <-> R over top of the right hand in plank position x 10 consecutive repetitions, without locking of elbow in extension, without complaints of pain/discomfort and/or loss of balance. = NEW GOAL GOALS MET Patient completed QuickDASH UE Questionnaire Measures. *MET 02/16/18 Pt completed 9-Hole Peg Test under 26.0 sec w/ the R hand. *MET 05/05/18 Pt able to execute PROM wrist flexion stretch, w/ elbow ext and forearm supinated, x 2 w/ hold of position x 3 sec w/ c/ o stiffness only in wrist. 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 Based on patient's verbal report, patient will be able to play personal guitar x 5 minutes with modified independence utilizing pick positioned in the right hand. 05/05/18= 25% met 2. Patient will be able to complete the 9-Hole Peg Test with the right hand under 18.0 seconds. 05/05/18= GOAL UPGRADED 3. 5/5 MMT right wrist flexion . 05/05/18= 4/5 4. 5/5 MMT right wrist extension. 05/05/18= 4/5 5. Patient will be modified independent with distal UE home exercise program utilizing provided written and visual instructions from therapist. 05/05/18= 25% met; HEP upgraded GOALS MET 5/5 MMT R forearm supination. *MET 05/05/18 [ End ] - Treatment 2 Descriptor HEP Weight shift over palm in plank position; modified chair dip w/ weight shift L <-> R over palm. Isolation of digits w/ movement - relaxation of digits not included in motor plan. Complexity Upgraded 1 Modifications Required Yes Complexity Upgraded Exercises 12 Descriptor Weight shift over R hand Plank position L<->R Modified dip L<->R Side Both Sets 1 Repetitions 5 Complexity Upgraded 11 Descriptor Kinesthetic exercises Individual digits Separation of 2 sides of hand Side Right Body Position Sitting Complexity Upgraded 10 Descriptor Proprioceptive exercises Individual digits of the R hand Separation of 2 sides of hand Side Right Body Position Sitting Complexity Upgraded 9 Descriptor Resistant clothespins 3 at 1 time Side Right Body Position Sitting Sets 2 Repetitions 50 Modifications Required Yes Complexity Upgraded 6 Descriptor Wrist Flexion Forearm supination support on arm rest Side Right Body Position Sitting Sets 3 Repetitions [address]/UD Side Right Body Position Sitting Sets 3 Repetitions 10 Resistance 4.4# spherical ball Tolerance Fair Modifications Required Yes Complexity Upgraded 4 Descriptor Wrist Ext/Flex Side Right Body Position Sitting Sets 3 Repetitions 10 Resistance 4.4# spherical ball Tolerance Fair Modifications Required Yes Complexity No Change 3 Descriptor Supination/Pronation Arm by side Side Right Body Position Sitting Sets 3 Repetitions 10 Resistance 4.4# spherical ball Modifications Required Yes Complexity No Change 1 Descriptor PROM of distal UE Side Right Visual Cues Min Cues Verbal Cues Min Cues Tolerance Fair Modifications Required Yes Complexity No Change - Assessment Patient Response to Treatment Good Rehab Potential Good Impairments Identified ADLs Coordination/Dexterity Functional Activities Motor Function Pain Weakness Range of Motion Recreational Activities Meaningful Activities Stiffness Soft Tissue Mobility Motor Planning Eye-Hand Coordination Assessment of Overall Progress Improving Assessment of Improvement Improving fine motor coordination of the R hand. Improving distal R UE strength . Decreased wrist stabilization; (-) ability to weight shift R <-> L in various positions (plank, modified dip). Decreased separation of digits w/ movement compared to PLOF; decreased ability to actively and successfully engage in meaningful activities when compared to PLOF. Continued positive response to resisted proprioceptive/kinesthetic exercises/activities prior to motor planning. (+) frustration that coordination is not to PLOF. Upgrading of HEP. Home Exercise Program Please see treatment section above for additional details. Pt denied questions. Reviewed with Patient/Caregiver Goals Progress Being Made Home Exercise Program Patient/Caregiver Understanding Good - Plan Therapy Recommendations Continue with Current Program Advance per Rehabilitation Protocol Additional Therapy Recommendations Complete re-eval; consult w/ PT Occupational Therapy Assessment OT Outpatient Muscle Testing Start: 02/13/18 09:50 Freq: Status: Active Protocol: Document 05/05/18 16:19 AMS (Rec: 05/05/18 16:44 AMS [email or web address]) Elbow/Forearm Strength Elbow and Forearm Manual Muscle Testing Right Pronation 5 Normal Supination 5 Normal Comments New measurements taken on 05/05 Left Pronation 5 Normal Supination 5 Normal Wrist Strength Wrist Manual Muscle Testing Right Flexion (C7) 4 Good Extension (C6) 4 Good Ulnar Deviation 4 Good Radial Deviation 5 Normal Comments Measurements re-taken 05/05/18 Left Flexion (C7) 5 Normal Extension (C6) 5 Normal Ulnar Deviation 5 Normal Radial Deviation 5 Normal Installer Molding And Trim/Hand Strength Installer Molding And Trim/Hand Strength Left Installer Molding And Trim Dynamometer II 107.3 Lateral Pinch Strengh (lbs) 23.3 Tip Pinch Strength (lbs) 15.0 Comments Lateral Hernandez Pinch: 30-34 Males L hand norms = 26.2 +/- 5.1 ( pounds) Tip Pinch: 30-34 Males L hand norms = 17.6 +/- 4.8 (pounds)
--- NOTE | 2018-05-15 16:29 | OT.OP.REEVAL ---
Visit Care Team Role Provider Type Alverto Watson MD Attending Provider Non-Staff Primary Care Provider Address: [address] [place] [address], [place] [address], [place], [address] Email: OT Outpatient OT Outpatient Adult Evaluation Start: 02/13/18 09:50 Freq: Status: Active Protocol: Document 02/13/18 09:51 AMS (Rec: 02/13/18 11:02 AMS [email or web address]) General Information Session Time Visit Start Time 08:28 Visit Stop Time 09:30 Total Visit Minutes 62 Visit Information Visit Number 08/[id number] Plan of Care Dates 02/13/18- 05/08/18 Insurance Information 12 visits/units authorized Setting Treatment Setting Outpatient Care Visit Type Note Type Initial Evaluation Referral Referring Physician Alverto Watson MD Reason for Referral Residual weakness in right UE. Evaluate & treat as appropriate. Precautions Complex migraine Identification Identification Confirmed Yes: Medical chart Patient Patient Concerns Clicking of right wrist w/ movement, motor coordination Patient Goals Improve function of right hand Medical Information Medical History Pt is a 32 year-old male referred to outpatient OT status post complex migraine which led to residual weakness of the pt's dominant right upper extremity. Pt reported that he was unable to move his right arm for 3 days while being hospitalized at [facility]. He stated that 'he never lost sensation' of his right arm during this time. Health History reviewed and placed in paper chart. PMH: Headaches, complex migraine, surgery (turboplasty, septoplasty, jaw surgery). Previous Therapy Previous Therapy/Therapies Yes History of Therapy Pt is being seen by PT 2 x per week to address proximal UE strength/ROM. 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 Current HEP: arm pulleys, finger walks on wall, resistance band for strengthening (ER, elbow flexion, elbow ext, shoulder ext, scapular pinches/row), and green theraputty for heel nailing machine operator strengthening. Social Information Social History Pt resides with and 11 year-old son in [place], [place] . Therapy Pain Assessment Pain When Pain Assessed Pre-tx Pain Present Pain Present Pain Reported Location Right Arm Intensity 2 Scale Used Numeric (1 - 10) Pain Behaviors Facial Grimacing Guarding Holding Area ADLs Overall Ability Comments Increased time; compensatory strategies utilized. Increased reliance L UE. IADLs Overall Function Comments Impaired. Compensatory strategies. Increased reliance L UE. 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 Completing mostly paperwork tasks since onset of complex migraine. Decreased legibility of handwriting. Pt reported that handwriting legibility 'is worse now'. Skill Level Impaired Meaningful Activities Meaningful Abilities Pt reports that he is unable to use a pick in his right hand to play the guitar. Decreased coordination w/ object manipulation/tool use ( e.g., use of paint brush); modifying heel nailing machine operator and utilizing gross grasp pattern. Decreased legibility of handwriting. Skill Level Impaired Range of Motion Upper Extremity/Lower Extremity Impairments Right UE: Forearm supination, forearm pronation, wrist UD, wrist RD, wrist ext, and wrist flex WNL. Neurological Assessment - Adult Coordination Comments Impaired R hand function. Able to oppose thumb to all digit pads bilaterally. Increased concentration required particularly w/ R wrist in extension; decreased speed noted without visual feedback provided. Tendency towards R wrist flexion pattern w/ object manipulation and/or motor planning of the digits of the R hand. Sensation Assessment Comments Summary Comments Pt denied any changes in sensation of R UE. In-Hand Manipulation [id number] Translation Right Level of Ability Impaired [id number]-[id number]-[id number] Translation Level of Ability Impaired Shift Level of Ability Impaired Simple Rotation Level of Ability Impaired Complex Rotation Level of Ability Impaired Goals Treatment Treatment Therapeutic exercises. Distal R UE strengthening program initiated. Provided theraband #1 for home use. Reviewed importance of avoidance of compensatory strategies. Forearm supination/pronation strengthening w/ hammer w/ short lever arm w/ elbow in 90 degrees flexion. Wrist ext w/ forearm pronation elbow 90 degrees flex; wrist flex w/ forearm in neutral elbow 90 degrees flex; wrist RD forearm neutral elbow 90 degrees flex ; wrist UD forearm pronation supported on TT w/ elbow 90 degrees flex. Pt denied questions. Education also provided for in-hand manipulation exercises. Pt denied questions. Short Term Goals Short Term Goals 1. Patient will complete QuickDASH UE Questionnaire Measures for therapist. 2. Patient will be able to complete the 9-Hole Peg Test with the right hand under 26.0 seconds. 3. Patient will be able to execute passive right wrist flexion stretch, with elbow near full extension and forearm in supination, x 2 separate trials, holding position for 3 seconds, without complaints of pain/ discomfort. Rest Room Matron Goals Rest Room Matron Goals 1. Based on patient's verbal report, patient will be able to play personal guitar x 5 minutes with modified independence utilizing pick positioned in the right hand. 2. Patient will be able to complete the 9-Hole Peg Test with the right hand under 22.0 seconds. 3. 5/5 MMT right wrist flexion 4. 5/5 MMT right wrist extension 5. 5/5 MMT right forearm supination 6. Patient will be modified independent with distal UE home exercise program utilizing provided written and visual instructions from therapist. Assessment/Plan Assessment Patient Response Good Rehabilitation Potential Good Impairments Identified ADLs Coordination/Dexterity Functional Activities Motor Function Pain Weakness Range of Motion Recreational Activities Meaningful Activities Stiffness Motor Planning Eye-Hand Coordination Treatment Assessment Pt is a 32 year-old male referred to outpatient OT status post complex migraine which led to residual weakness of the pt's dominant right upper extremity. Pt reported that he was unable to move his right arm for 3 days while being hospitalized at [facility]. He stated that 'he never lost sensation' of his right arm during this time. PMH: Headaches, complex migraine, surgery (turboplasty, septoplasty, jaw surgery). Pt is seeing PT 2 x a week for proximal UE strengthening. 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 Current Level of Function: Increased time w/ BADLS w/ increased reliance on L UE. Decreased legibility of handwriting. Unable to use pick in right hand and play guitar on daily basis. Decreased coordination w/ object manipulation/tool use ( e.g., use of paint brush). Evaluation Findings: Decreased ability to efficiently and successfully participate in daily activities/meaningful activities; impaired motor coordination; clicking of wrist w/ movement; impaired in -hand manipulation skills; decreased joint sense; decreased distal UE strength; and pain/discomfort of R UE. Outpatient OT recommended to address these areas so that pt may successfully return to PLOF w/ engagement in daily and meaningful activities in the home and community environments. Home Exercise Program Distal R UE strengthening program initiated. Provided theraband #1 for home use. Reviewed importance of avoidance of compensatory strategies. Forearm supination /pronation strengthening w/ hammer w/ short lever arm w/ elbow in 90 degrees flexion. Wrist ext w/ forearm pronation elbow 90 degrees flex; wrist flex w/ forearm in neutral elbow 90 degrees flex; wrist RD forearm neutral elbow 90 degrees flex; wrist UD forearm pronation supported on TT w/ elbow 90 degrees flex. Pt denied questions. Education also provided for in-hand manipulation exercises. Pt denied questions. Reviewed with Patient Goals Home Exercise Program Patient Understanding Good Plan Comment 12 weeks Treatment Frequency Twice a Week Therapeutic Contents Active Range of Motion Client Education Functional Activities Home Exercise Program Manual Therapy Education Neurodevelopment Treatment Neuromuscular Re-Education Therapeutic Activities Therapeutic Exercises Modalities Modalities As Needed Additional Types of Modalities e-stim, ultrasound, FES Patient Instruction Home Exercise Program Plan of Care Questions/Concerns Other Sensory Assessment Sensory Profile2 Functional Wrist/Hand Scan Hand Side OT Outpatient Muscle Testing Start: 02/13/18 09:50 Freq: Status: Active Protocol: Document 05/15/18 16:02 AMS (Rec: 05/15/18 16:29 AMS [email or web address]) Elbow/Forearm Strength Elbow and Forearm Manual Muscle Testing Right Pronation 5 Normal Supination 5 Normal Comments New measurements taken on 05/05 Left Pronation 5 Normal Supination 5 Normal Wrist Strength Wrist Manual Muscle Testing Right Flexion (C7) 4 Good Extension (C6) 4 Good Ulnar Deviation 4 Good Radial Deviation 5 Normal Comments Measurements re-taken 05/05/18 Left Flexion (C7) 5 Normal Extension (C6) 5 Normal Ulnar Deviation 5 Normal Radial Deviation 5 Normal Ore Grader/Hand Strength Ore Grader/Hand Strength Right Ore Grader Dynamometer II 23.3 Lateral Pinch Strengh (lbs) 5.3 Tip Pinch Strength (lbs) 3.0 Comments Lateral Hernandez Pinch: 30-34 Males R hand norms = 26.4 +/- 4.8 ( pounds) Tip Pinch: 30-34 Males R hand norms = 17.6 +/- 6.7 (pounds) Left Ore Grader Dynamometer II 107.3 Lateral Pinch Strengh (lbs) 23.3 Tip Pinch Strength (lbs) 15.0 Comments Lateral Hernandez Pinch: 30-34 Males L hand norms = 26.2 +/- 5.1 ( pounds) Tip Pinch: 30-34 Males L hand norms = 17.6 +/- 4.8 (pounds) OT Outpatient Treatment Note - Adult Start: 02/13/18 09:50 Freq: Status: Active Protocol: Document 05/15/18 16:02 AMS (Rec: 05/15/18 16:29 AMS [email or web address]) OT Outpatient Adult Treatment Note Session Time Visit Start Time 12:30 Visit Stop Time 13:21 Total Visit Minutes 51 Visit Information Visit Number 04/22 Plan of Care Dates 05/08/18-07/31/18 Insurance Information 12 visits/units authorized Setting Treatment Setting Outpatient Care Visit Type Note Type Re-Evaluation General Information General Information Pt is a 32 year-old male referred to outpatient OT status post complex migraine which led to residual weakness of the pt's dominant right upper extremity. Pt reported that he was unable to move his right arm for 3 days while being hospitalized at [facility]. He stated that 'he never lost sensation' of his right arm during this time. - Subjective Identification Type Name Identification Reconciled With Medical Record Observations I am still waiting to get in to see the neuro to have her go over the results of the MRI . This wrist still cracks no matter what direction I move it in. I have tried everything per Jagjit. Chief Complaint(s) Restricts Loss of Function Moderate Degree Effect on Activity Moderate Degree Effect on Daily Life Moderate Degree Patient Expectation/Goals Improve function of right hand Patient/Caregiver Compliance with Home Excellent Exercise Program - Objective Objective Measurements Please see below for progress towards meeting established OT goals. Improving kraig for active WB compared to previous treatment session; pt however , is still unable to kraig weight shifting over the right hand/wrist even w/ modifications to WB exercises. Improving motor coordination of the right hand; improving dissociation between 4th and 5th digits of the R hand w/ motor planning exercises. Decreased active engagement of right 5th digit w/ manipulation of large heavy objects; however, improving active DIPJ flexion observed w / bear claw and finger pads exercise. 02/16/18 QuickDASH UE Outcome Measure Score = 47.73 QuickDASH UE Work Module Score = 50.00 QuickDASH UE Sports/Perfomring Arts Module Score = 56.25 ( guitar, quintero, violin, piano) Short Term Goals 1. Based on patient's verbal report, he will be able to open a tight/new jar with the right hand without difficulty on a daily basis. 05/15/18= 75% met. 2. Patient will be able to weight shift L <-> R over top of the right hand in plank position x 10 consecutive repetitions, without locking of elbow in extension, without complaints of pain/discomfort and/or loss of balance. = 25% met GOALS MET Patient completed QuickDASH UE Questionnaire Measures. *MET 02/16/18 Pt completed 9-Hole Peg Test under 26.0 sec w/ the R hand. *MET 05/05/18 Pt able to execute PROM wrist flexion stretch, w/ elbow ext and forearm supinated, x 2 w/ hold of position x 3 sec w/ c/ o stiffness only in wrist. * MET 05/05/18 [facility] Goals 1. Based on patient's verbal report, patient will be able to play personal guitar x 5 minutes with modified independence utilizing pick positioned in the right hand. 05/15/18= 25% met 2. Patient will be able to complete the 9-Hole Peg Test with the right hand under 18.0 seconds. 05/05/18= GOAL UPGRADED 3. 5/5 MMT right wrist flexion . 05/05/18= 4/5 4. 5/5 MMT right wrist extension. 05/05/18= 4/5 5. Patient will be modified independent with distal UE home exercise program utilizing provided written and visual instructions from therapist. 05/15/18= 25% met; HEP upgraded GOALS MET 5/5 MMT R forearm supination. *MET 05/05/18 [ End ] - Treatment 2 Descriptor HEP Modification of WB exercises w / body in different positions. Advanced digit isolation motor planning exercises for the R hand w/ focus on 4th and 5th digits, including grading of different speeds/heights w / movements. Complexity Upgraded Exercises 12 Descriptor WB exercises Modifications Focus on R UE Side Both Complexity Upgraded 11 Descriptor Kinesthetic exercises Individual digits Separation of 2 sides of hand Side Right Body Position Sitting Complexity Upgraded 7 Descriptor Motor planning of digits Complexity Upgraded [address]/UD Side Right Tolerance Good Modifications Required Yes Complexity No Change 4 Descriptor Wrist Ext/Flex Side Right Body Position Sitting Sets 3 Repetitions 10 Resistance 4.4# spherical ball Tolerance Good Modifications Required Yes Complexity No Change 1 Descriptor PROM of distal UE Wall stretch Side Right Visual Cues Min Cues Verbal Cues Min Cues Tolerance Fair Modifications Required Yes Complexity Upgraded - Assessment Patient Response to Treatment Good Rehab Potential Good Impairments Identified ADLs Coordination/Dexterity Functional Activities Motor Function Pain Weakness Range of Motion Recreational Activities Meaningful Activities Stiffness Soft Tissue Mobility Motor Planning Eye-Hand Coordination Assessment of Overall Progress Improving Assessment of Improvement Jagjit has made progress over the last certification period in the areas of fine motor coordination, functional abilities of the right hand and distal R UE strength. This is evidenced by Jagjit meeting short term goals in these areas. Despite progress, Jagjit continues to present w/ crepitus of the R wrist, tightness of the distal R UE, impaired distal R UE sensation , decreased tolerance for weight bearing exercises ( managing body weight), and decreased ability to successfully engage in meaningful activities at level previously able to. Thus, continued outpt OT is recommended at this time to address these areas. Home Exercise Program Please see treatment section above for additional details. Pt denied questions. Reviewed with Patient/Caregiver Goals Progress Being Made Home Exercise Program Patient/Caregiver Understanding Good - Plan Therapy Recommendations Continue with Current Program Advance per Rehabilitation Protocol Additional Therapy Recommendations 12 weeks; POC to reflec recommendations of neuro Frequency of Treatment Twice a Week Therapeutic Contents Active Range of Motion Client Education Functional Activities Home Exercise Program Joint Protection Manual Therapy Education Neurodevelopment Treatment Neuromuscular Re-Education Stretching/Flexibility Activities Therapeutic Activities Therapeutic Exercises Modalities Sensory Re-education Modalities As Needed As Prescribed Occupational Therapy Assessment OT Outpatient Muscle Testing Start: 02/13/18 09:50 Freq: Status: Active Protocol: Document 05/15/18 16:02 AMS (Rec: 05/15/18 16:29 AMS [email or web address]) Elbow/Forearm Strength Elbow and Forearm Manual Muscle Testing Right Pronation 5 Normal Supination 5 Normal Comments New measurements taken on 05/05 Left Pronation 5 Normal Supination 5 Normal Wrist Strength Wrist Manual Muscle Testing Right Flexion (C7) 4 Good Extension (C6) 4 Good Ulnar Deviation 4 Good Radial Deviation 5 Normal Comments Measurements re-taken 05/05/18 Left Flexion (C7) 5 Normal Extension (C6) 5 Normal Ulnar Deviation 5 Normal Radial Deviation 5 Normal Ore Grader/Hand Strength Ore Grader/Hand Strength Right Ore Grader Dynamometer II 23.3 Lateral Pinch Strengh (lbs) 5.3 Tip Pinch Strength (lbs) 3.0 Comments Lateral Hernandez Pinch: 30-34 Males R hand norms = 26.4 +/- 4.8 ( pounds) Tip Pinch: 30-34 Males R hand norms = 17.6 +/- 6.7 (pounds) Left Ore Grader Dynamometer II 107.3 Lateral Pinch Strengh (lbs) 23.3 Tip Pinch Strength (lbs) 15.0 Comments Lateral Hernandez Pinch: 30-34 Males L hand norms = 26.2 +/- 5.1 ( pounds) Tip Pinch: 30-34 Males L hand norms = 17.6 +/- 4.8 (pounds) Occupational Therapy Assessment OT Outpatient Standardized Assessments Start: 02/13/18 09:50 Freq: Status: Active Protocol: Document 05/15/18 16:02 [facility] (Rec: 05/15/18 16:29 [facility] [email or web address]) 9-Hole Peg Hand Test Hand Right Date of Test 05/05/18 Interpretation Impaired Comments Scoring time = 24.4 sec; 2 SD above the mean when compared to same-aged peers. 02/13/18: Scoring time = 31.5 sec Performance was > 5 SD above the mean when compared to same aged peers. 30-34 Males R hand norms = 17. 7 +/- 2.5 Left Date of Test 02/13/18 Comments Scoring time = 22.3 sec Performance was > 1 SD above the mean when compared to same aged peers. 30-34 Males L hand norms = 18. 7 +/- 2.2
--- NOTE | 2018-06-29 15:37 | OT.OP.TRT ---
Visit Care Team Role Provider Type Alverto Watson MD Attending Provider Non-Staff Primary Care Provider Specialty: Family Practice Address: [address] [place] [address], [address], [facility] Email: Occupational Therapy Treatment Note OT Outpatient Treatment Note - Adult Start: 02/13/18 09:50 Freq: Status: Active Protocol: Document 06/26/18 15:30 AMS (Rec: 06/29/18 15:37 AMS [email or web address]) OT Outpatient Adult Treatment Note Session Time Visit Start Time 09:30 Visit Stop Time 10:19 Total Visit Minutes 49 Visit Information Visit Number 05/22 Plan of Care Dates 05/08/18-07/31/18 Insurance Information 12 visits/units authorized Setting Treatment Setting Outpatient Care Visit Type Note Type Treatment Note - Subjective Identification Type Name Identification Reconciled With Medical Record Observations This wrist still always clicks per Jagjit. I am going to see the doc on July 07 . Pt indicated 3-4 out of 10 on Pain Assessment Grid R distal UE. See paper chart for additional details. Chief Complaint(s) Restricts Loss of Function Moderate Degree Effect on Activity Moderate Degree Effect on Daily Life Moderate Degree Patient Expectation/Goals Improve function of right hand Patient/Caregiver Compliance with Home Excellent Exercise Program - Objective Objective Measurements Please see below for progress towards meeting established OT goals. Improving kraig for active WB. Improving motor coordination of the right hand ; improving dissociation between 4th and 5th digits of the R hand w/ motor planning exercises. 06/26/18 QuickDASH UE Outcome Measure Score = 38.64 QuickDASH UE Work Module Score = 43.75 QuickDASH UE Sports/Perfomring Arts Module Score = 50.00 ( guitar, quintero, violin, piano) 02/16/18 QuickDASH UE Outcome Measure Score = 47.73 QuickDASH UE Work Module Score = 50.00 QuickDASH UE Sports/Perfomring Arts Module Score = 56.25 ( guitar, quintero, violin, piano) Short Term Goals 1. Based on patient's verbal report, he will be able to open a tight/new jar with the right hand without difficulty on a daily basis. 05/15/18= 75% met. 2. Patient will be able to weight shift L <-> R over top of the right hand in plank position x 10 consecutive repetitions, without locking of elbow in extension, without complaints of pain/discomfort and/or loss of balance. 06/26= 25% met GOALS MET Patient completed QuickDASH UE Questionnaire Measures. *MET 02/16/18 Pt completed 9-Hole Peg Test under 26.0 sec w/ the R hand. *MET 05/05/18 Pt able to execute PROM wrist flexion stretch, w/ elbow ext and forearm supinated, x 2 w/ hold of position x 3 sec w/ c/ o stiffness only in wrist. * MET 05/05/18 [facility] Goals 1. Based on patient's verbal report, patient will be able to play personal guitar x 5 minutes with modified independence utilizing pick positioned in the right hand. 06/26/18= 25% met 2. Patient will be able to complete the 9-Hole Peg Test with the right hand under 18.0 seconds. 05/05/18= GOAL UPGRADED 3. 5/5 MMT right wrist flexion . 05/05/18= 4/5 4. 5/5 MMT right wrist extension. 05/05/18= 4/5 5. Patient will be modified independent with distal UE home exercise program utilizing provided written and visual instructions from therapist. 06/26/18= 25% met; HEP upgraded GOALS MET 5/5 MMT R forearm supination. *MET 05/05/18 [ End ] - Treatment 3 Descriptor Ultrasound Pulsed setting. 2.0 w/cm2; 20% duty cycle. Volar surface of R forarm. 2 Descriptor HEP. Focus on stretching/home massage/mobilization. Pt denied questions. Complexity Upgraded Exercises 12 Descriptor WB exercises Modifications Focus on R UE Side Both Complexity No Change 7 Descriptor Motor planning of digits Complexity Upgraded [address]/UD Side Right Tolerance Good Modifications Required Yes Complexity No Change 4 Descriptor Wrist Ext/Flex Side Right Body Position Sitting Sets 3 Repetitions 10 Resistance 4.4# spherical ball Tolerance Good Modifications Required Yes Complexity No Change 1 Descriptor PROM of distal UE Wall stretch Side Right Visual Cues Min Cues Verbal Cues Min Cues Tolerance Fair Modifications Required Yes Complexity Upgraded Manual Therapy Manual Therapy Soft tissue mobilization R forearm; manual therapy to facilitate forearm supination, wrist extension and wrist UD w/ supination. Decreased clicking of R wrist w/ movement s/p treatment. - Assessment Patient Response to Treatment Good Rehab Potential Good Impairments Identified ADLs Coordination/Dexterity Functional Activities Motor Function Pain Weakness Range of Motion Recreational Activities Meaningful Activities Stiffness Soft Tissue Mobility Motor Planning Eye-Hand Coordination Assessment of Overall Progress Improving Assessment of Improvement Increased right kier operator/digit strength; this is evidenced by results of dynamometer and pinch strength testing. (+) clicking of wrist w/ all active range of motion; decreased 'clicking' following mobilization by therapist. Will need to monitor if symptoms decrease/maintain. Recommend continued work in forearm supination w/ UD and repeating manual mobilization to support distal UE function/ ROM. Home Exercise Program Please see treatment section above for additional details. Pt denied questions. Reviewed with Patient/Caregiver Goals Progress Being Made Home Exercise Program Patient/Caregiver Understanding Good - Plan Therapy Recommendations Continue with Current Program Advance per Rehabilitation Protocol Additional Therapy Recommendations Consult w/ PT
--- NOTE | 2018-06-30 08:47 | OT.OP.TRT ---
Visit Care Team Role Provider Type Alverto Watson MD Attending Provider Non-Staff Primary Care Provider Specialty: Family Practice Address: [address] [place] [address], [address], [address] Email: Occupational Therapy Treatment Note OT Outpatient Treatment Note - Adult Start: 02/13/18 09:50 Freq: Status: Active Protocol: Document 06/29/18 15:30 AMS (Rec: 06/30/18 08:47 AMS [id number]) OT Outpatient Adult Treatment Note Session Time Visit Start Time 10:30 Visit Stop Time 11:20 Total Visit Minutes 50 Visit Information Visit Number 06/22 Plan of Care Dates 05/08/18-07/31/18 Insurance Information 12 visits/units authorized Setting Treatment Setting Outpatient Care Visit Type Note Type Treatment Note General Information General Information Pt is a 32 year-old male referred to outpatient OT status post complex migraine which led to residual weakness of the pt's dominant right upper extremity. Pt reported that he was unable to move his right arm for 3 days while being hospitalized at [facility]. He stated that 'he never lost sensation' of his right arm during this time. - Subjective Identification Type Name Identification Reconciled With Medical Record Observations It felt better when I left. I did not feel good on Friday so I took the migraine medication and relaxed both days per Jagjit. Chief Complaint(s) Restricts Loss of Function Moderate Degree Effect on Activity Moderate Degree Effect on Daily Life Moderate Degree Patient Expectation/Goals Improve function of right hand Patient/Caregiver Compliance with Home Excellent Exercise Program - Objective Objective Measurements Please see below for progress towards meeting established OT goals. Decreased 'clicking' reported s/p manual work on distal R UE. Decreased graded control w/ resisted 4th/5th digit flat flexion w/ extension (5th digit more difficult than 4th digit; minor difficulties w/ 2nd and 3rd). Decreased control w/ resisted circles w/ 4th and 5th digits, as well as half rainbows (more difficult w/ 5th vs 4th). Improving dissociation between digits of R hand (4th and 5th cont to be the 'most difficult'). 06/26/18 QuickDASH UE Outcome Measure Score = 38.64 QuickDASH UE Work Module Score = 43.75 QuickDASH UE Sports/Perfomring Arts Module Score = 50.00 ( guitar, quintero, violin, piano) 02/16/18 QuickDASH UE Outcome Measure Score = 47.73 QuickDASH UE Work Module Score = 50.00 QuickDASH UE Sports/Perfomring Arts Module Score = 56.25 ( guitar, quintero, violin, piano) Short Term Goals 1. Based on patient's verbal report, he will be able to open a tight/new jar with the right hand without difficulty on a daily basis. 06/29/18= 75 % met. 2. Patient will be able to weight shift L <-> R over top of the right hand in plank position x 10 consecutive repetitions, without locking of elbow in extension, without complaints of pain/discomfort and/or loss of balance. 06/26= 25% met GOALS MET Patient completed QuickDASH UE Questionnaire Measures. *MET 02/16/18 Pt completed 9-Hole Peg Test under 26.0 sec w/ the R hand. *MET 05/05/18 Pt able to execute PROM wrist flexion stretch, w/ elbow ext and forearm supinated, x 2 w/ hold of position x 3 sec w/ c/ o stiffness only in wrist. * MET 05/05/18 [employer] Goals 1. Based on patient's verbal report, patient will be able to play personal guitar x 5 minutes with modified independence utilizing pick positioned in the right hand. 06/26/18= 25% met 2. Patient will be able to complete the 9-Hole Peg Test with the right hand under 18.0 seconds. 05/05/18= GOAL UPGRADED 3. 5/5 MMT right wrist flexion . 05/05/18= 4/5 4. 5/5 MMT right wrist extension. 05/05/18= 4/5 5. Patient will be modified independent with distal UE home exercise program utilizing provided written and visual instructions from therapist. 06/26/18= 25% met; HEP upgraded GOALS MET 5/5 MMT R forearm supination. *MET 05/05/18 [ End ] - Treatment 3 Descriptor Ultrasound Pulsed setting. 2.0 w/cm2; 20% duty cycle. Dorsal surface of R wrist. 2 Descriptor HEP. Instructed in resisted 4th and 5th digit motor coordination w/ use of rubberband. Discussed alt to massage stick for home soft tissue mobilization/massage. Jagjit denied questions. Complexity Upgraded Exercises 12 Descriptor WB exercises Modifications Focus on R UE Side Both Complexity No Change 7 Descriptor Motor planning of digits Complexity Upgraded 1 Descriptor PROM of distal UE Wall stretch Side Right Visual Cues Min Cues Verbal Cues Min Cues Tolerance Fair Modifications Required Yes Complexity Upgraded Manual Therapy Manual Therapy Soft tissue mobilization R forearm; manual therapy to facilitate forearm supination, wrist extension and wrist UD w/ supination. - Assessment Patient Response to Treatment Good Rehab Potential Excellent Impairments Identified ADLs Coordination/Dexterity Functional Activities Motor Function Pain Weakness Range of Motion Recreational Activities Meaningful Activities Stiffness Soft Tissue Mobility Motor Planning Eye-Hand Coordination Assessment of Overall Progress Improving Assessment of Improvement Improved soft tissue mobility of R forearm compared to previous treatment session. Improved mobility w/ passive supination/wrist ext/UD. However, continued clicking w/ all active wrist movements pre-treatment. Improving motor coordination of digits of the R hand; however, 4th and 5th digits continue to impact patient's ability to play musical instruments efficiently and without errors w/ active engagement of the right hand. Recommend adjusting POC based on doctor recommendations and continuing to address soft tissue mobility of the distal R UE/ motor coordination to support pt's success in day-to-day life w/ active engagement in meaningful activities. Home Exercise Program Please see treatment section above for additional details. Pt denied questions. Reviewed with Patient/Caregiver Goals Progress Being Made Home Exercise Program Patient/Caregiver Understanding Good - Plan Therapy Recommendations Continue with Current Program Advance per Rehabilitation Protocol Additional Therapy Recommendations Consult w/ PT
--- NOTE | 2018-07-10 12:22 | OT.OP.TRT ---
Visit Care Team Role Provider Type Alverto Watson MD Attending Provider Non-Staff Primary Care Provider Specialty: Family Practice Address: [address] [place] [address], [address], [address] Email: Occupational Therapy Treatment Note OT Outpatient Treatment Note - Adult Start: 02/13/18 09:50 Freq: Status: Active Protocol: Document 07/10/18 12:05 AMS (Rec: 07/10/18 12:21 AMS [email or web address]) OT Outpatient Adult Treatment Note Session Time Visit Start Time 10:30 Visit Stop Time 11:20 Total Visit Minutes 50 Visit Information Visit Number 10/[id number] Plan of Care Dates 05/08/18-07/31/18 Setting Treatment Setting Outpatient Care Visit Type Note Type Treatment Note General Information General Information Pt is a 32 year-old male referred to outpatient OT status post complex migraine which led to residual weakness of the pt's dominant right upper extremity. Pt reported that he was unable to move his right arm for 3 days while being hospitalized at [facility]. He stated that 'he never lost sensation' of his right arm during this time. - Subjective Identification Type Name Identification Reconciled With Medical Record Observations She wants me to see a headache specialist at [facility] . 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 Chief Complaint(s) Restricts Loss of Function Moderate Degree Effect on Activity Moderate Degree Effect on Daily Life Moderate Degree Patient Expectation/Goals Improve function of right hand Patient/Caregiver Compliance with Home Excellent Exercise Program - Objective Objective Measurements Please see below for progress towards meeting established OT goals. Decreased graded control w/ resisted 4th/5th digit isolated motor planning; c/o more difficulty w/ executing w/ the 5th versus the 4th. Decreased tolerance for weight bearing through R wrist; decreased wrist stability noted w/ resisted TB exercises. Education completed on exercises to address wrist stability and re -distributing weight across hand versus isolated wrist to decrease discomfort w/ flat hand push-ups. Improving dissociation between digits of R hand (4th and 5th cont to be the 'most difficult'). 06/26/18 QuickDASH UE Outcome Measure Score = 38.64 QuickDASH UE Work Module Score = 43.75 QuickDASH UE Sports/Perfomring Arts Module Score = 50.00 ( guitar, quintero, violin, piano) 02/16/18 QuickDASH UE Outcome Measure Score = 47.73 QuickDASH UE Work Module Score = 50.00 QuickDASH UE Sports/Perfomring Arts Module Score = 56.25 ( guitar, quintero, violin, piano) Short Term Goals 1. Based on patient's verbal report, he will be able to open a tight/new jar with the right hand without difficulty on a daily basis. 06/29/18= 75 % met. 2. Patient will be able to weight shift L <-> R over top of the right hand in plank position x 10 consecutive repetitions, without locking of elbow in extension, without complaints of pain/discomfort and/or loss of balance. 06/26= 25% met GOALS MET Patient completed QuickDASH UE Questionnaire Measures. *MET 02/16/18 Pt completed 9-Hole Peg Test under 26.0 sec w/ the R hand. *MET 05/05/18 Pt able to execute PROM wrist flexion stretch, w/ elbow ext and forearm supinated, x 2 w/ hold of position x 3 sec w/ c/ o stiffness only in wrist. * MET 05/05/18 [facility] Goals 1. Based on patient's verbal report, patient will be able to play personal guitar x 5 minutes with modified independence utilizing pick positioned in the right hand. 06/26/18= 25% met 2. Patient will be able to complete the 9-Hole Peg Test with the right hand under 18.0 seconds. 05/05/18= GOAL UPGRADED 3. 5/5 MMT right wrist flexion . 05/05/18= 4/5 4. 5/5 MMT right wrist extension. 05/05/18= 4/5 5. Patient will be modified independent with distal UE home exercise program utilizing provided written and visual instructions from therapist. 06/26/18= 25% met; HEP upgraded GOALS MET 5/5 MMT R forearm supination. *MET 05/05/18 [ End ] - Treatment 3 Descriptor Ultrasound Pulsed setting. 2.0 w/cm2; 20% duty cycle. Dorsal surface of R wrist. Complexity No Change 2 Descriptor HEP. Instructed w/ wrist stability exercises w/ use of TB #5; patient denied questions. Recommended working on wrist stability w/ fist and palm without TB. Practiced in session. Patient denied questions. Complexity Upgraded Exercises 9 Descriptor Wrist stability Fist Flat hand Education re: distribution of weight Complexity Upgraded 8 Descriptor Wrist stability Side Right Resistance TB #5 Complexity Upgraded 7 Descriptor Motor planning of digits Complexity No Change 1 Descriptor PROM of distal UE Wall stretch Side Right Visual Cues Min Cues Verbal Cues Min Cues Tolerance Fair Modifications Required Yes Complexity No Change Manual Therapy Manual Therapy Soft tissue mobilization R forearm; manual therapy to facilitate forearm supination, wrist extension and wrist UD w/ supination. - Assessment Patient Response to Treatment Good Rehab Potential Excellent Impairments Identified ADLs Coordination/Dexterity Functional Activities Motor Function Pain Weakness Range of Motion Recreational Activities Meaningful Activities Stiffness Soft Tissue Mobility Motor Planning Eye-Hand Coordination Assessment of Overall Progress Improving Assessment of Improvement Improving motor coordination of digits of the R hand; however, 4th and 5th digits continue to impact patient's ability to play musical instruments efficiently and without errors w/ active engagement of the right hand. Decreased wrist stability; decreased tolerance for WB through hand. c/o pain in wrist w/ active weight bearing . Recommend continueing to address motor coordination of the R hand, as well as wrist stability/distribution of weight. Home Exercise Program Please see treatment section above for additional details. Pt denied questions. Reviewed with Patient/Caregiver Goals Progress Being Made Home Exercise Program Patient/Caregiver Understanding Good - Plan Therapy Recommendations Continue with Current Program Advance per Rehabilitation Protocol Additional Therapy Recommendations Consult w/ PT
--- NOTE | 2018-09-09 15:05 | OT.OP.DC ---
Visit Care Team Role Provider Type Alverto Watson MD Attending Provider Non-Staff Primary Care Provider Address: [address] [place] [address], [place] [address], [place], [address] Email: OT Outpatient OT Outpatient Adult Evaluation Start: 02/13/18 09:50 Freq: Status: Active Protocol: Document 02/13/18 09:51 AMS (Rec: 02/13/18 11:02 AMS [email or web address]) General Information Session Time Visit Start Time 08:28 Visit Stop Time 09:30 Total Visit Minutes 62 Visit Information Visit Number 08/[id number] Plan of Care Dates 02/13/18- 05/08/18 Insurance Information 12 visits/units authorized Setting Treatment Setting Outpatient Care Visit Type Note Type Initial Evaluation Referral Referring Physician Alverto Watson MD Reason for Referral Residual weakness in right UE. Evaluate & treat as appropriate. Precautions Complex migraine Identification Identification Confirmed Yes: Medical chart Patient Patient Concerns Clicking of right wrist w/ movement, motor coordination Patient Goals Improve function of right hand Medical Information Medical History Pt is a 32 year-old male referred to outpatient OT status post complex migraine which led to residual weakness of the pt's dominant right upper extremity. Pt reported that he was unable to move his right arm for 3 days while being hospitalized at [facility]. He stated that 'he never lost sensation' of his right arm during this time. Health History reviewed and placed in paper chart. PMH: Headaches, complex migraine, surgery (turboplasty, septoplasty, jaw surgery). Previous Therapy Previous Therapy/Therapies Yes History of Therapy Pt is being seen by PT 2 x per week to address proximal UE strength/ROM. Per pt, PT has been focusing on strengthening of his R shoulder, elbow, and overall porcelain slusher strength. Current HEP: arm pulleys, finger walks on wall, resistance band for strengthening (ER, elbow flexion, elbow ext, shoulder ext, scapular pinches/row), and green theraputty for porcelain slusher strengthening. Social Information Social History Pt resides with and 11 year-old son in [place], [place] . Therapy Pain Assessment Pain When Pain Assessed Pre-tx Pain Present Pain Present Pain Reported Location Right Arm Intensity 2 Scale Used Numeric (1 - 10) Pain Behaviors Facial Grimacing Guarding Holding Area ADLs Overall Ability Comments Increased time; compensatory strategies utilized. Increased reliance L UE. IADLs Overall Function Comments Impaired. Compensatory strategies. Increased reliance L UE. 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 Completing mostly paperwork tasks since onset of complex migraine. Decreased legibility of handwriting. Pt reported that handwriting legibility 'is worse now'. Skill Level Impaired Meaningful Activities Meaningful Abilities Pt reports that he is unable to use a pick in his right hand to play the guitar. Decreased coordination w/ object manipulation/tool use ( e.g., use of paint brush); modifying porcelain slusher and utilizing gross grasp pattern. Decreased legibility of handwriting. Skill Level Impaired Range of Motion Upper Extremity/Lower Extremity Impairments Right UE: Forearm supination, forearm pronation, wrist UD, wrist RD, wrist ext, and wrist flex WNL. Neurological Assessment - Adult Coordination Comments Impaired R hand function. Able to oppose thumb to all digit pads bilaterally. Increased concentration required particularly w/ R wrist in extension; decreased speed noted without visual feedback provided. Tendency towards R wrist flexion pattern w/ object manipulation and/or motor planning of the digits of the R hand. Sensation Assessment Comments Summary Comments Pt denied any changes in sensation of R UE. In-Hand Manipulation [id number]-[id number] Translation Right Level of Ability Impaired Hmee-tw-Iolbqu Translation Level of Ability Impaired Shift Level of Ability Impaired Simple Rotation Level of Ability Impaired Complex Rotation Level of Ability Impaired Goals Treatment Treatment Therapeutic exercises. Distal R UE strengthening program initiated. Provided theraband #1 for home use. Reviewed importance of avoidance of compensatory strategies. Forearm supination/pronation strengthening w/ hammer w/ short lever arm w/ elbow in 90 degrees flexion. Wrist ext w/ forearm pronation elbow 90 degrees flex; wrist flex w/ forearm in neutral elbow 90 degrees flex; wrist RD forearm neutral elbow 90 degrees flex ; wrist UD forearm pronation supported on TT w/ elbow 90 degrees flex. Pt denied questions. Education also provided for in-hand manipulation exercises. Pt denied questions. Short Term Goals Short Term Goals 1. Patient will complete QuickDASH UE Questionnaire Measures for therapist. 2. Patient will be able to complete the 9-Hole Peg Test with the right hand under 26.0 seconds. 3. Patient will be able to execute passive right wrist flexion stretch, with elbow near full extension and forearm in supination, x 2 separate trials, holding position for 3 seconds, without complaints of pain/ discomfort. Custodian Blood Bank Goals Custodian Blood Bank Goals 1. Based on patient's verbal report, patient will be able to play personal guitar x 5 minutes with modified independence utilizing pick positioned in the right hand. 2. Patient will be able to complete the 9-Hole Peg Test with the right hand under 22.0 seconds. 3. 5/5 MMT right wrist flexion 4. 5/5 MMT right wrist extension 5. 5/5 MMT right forearm supination 6. Patient will be modified independent with distal UE home exercise program utilizing provided written and visual instructions from therapist. Assessment/Plan Assessment Patient Response Good Rehabilitation Potential Good Impairments Identified ADLs Coordination/Dexterity Functional Activities Motor Function Pain Weakness Range of Motion Recreational Activities Meaningful Activities Stiffness Motor Planning Eye-Hand Coordination Treatment Assessment Pt is a 32 year-old male referred to outpatient OT status post complex migraine which led to residual weakness of the pt's dominant right upper extremity. Pt reported that he was unable to move his right arm for 3 days while being hospitalized at [facility]. He stated that 'he never lost sensation' of his right arm during this time. PMH: Headaches, complex migraine, surgery (turboplasty, septoplasty, jaw surgery). Pt is seeing PT 2 x a week for proximal UE strengthening. 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 Current Level of Function: Increased time w/ BADLS w/ increased reliance on L UE. Decreased legibility of handwriting. Unable to use pick in right hand and play guitar on daily basis. Decreased coordination w/ object manipulation/tool use ( e.g., use of paint brush). Evaluation Findings: Decreased ability to efficiently and successfully participate in daily activities/meaningful activities; impaired motor coordination; clicking of wrist w/ movement; impaired in -hand manipulation skills; decreased joint sense; decreased distal UE strength; and pain/discomfort of R UE. Outpatient OT recommended to address these areas so that pt may successfully return to PLOF w/ engagement in daily and meaningful activities in the home and community environments. Home Exercise Program Distal R UE strengthening program initiated. Provided theraband #1 for home use. Reviewed importance of avoidance of compensatory strategies. Forearm supination /pronation strengthening w/ hammer w/ short lever arm w/ elbow in 90 degrees flexion. Wrist ext w/ forearm pronation elbow 90 degrees flex; wrist flex w/ forearm in neutral elbow 90 degrees flex; wrist RD forearm neutral elbow 90 degrees flex; wrist UD forearm pronation supported on TT w/ elbow 90 degrees flex. Pt denied questions. Education also provided for in-hand manipulation exercises. Pt denied questions. Reviewed with Patient Goals Home Exercise Program Patient Understanding Good Plan Comment 12 weeks Treatment Frequency Twice a Week Therapeutic Contents Active Range of Motion Client Education Functional Activities Home Exercise Program Manual Therapy Education Neurodevelopment Treatment Neuromuscular Re-Education Therapeutic Activities Therapeutic Exercises Modalities Modalities As Needed Additional Types of Modalities e-stim, ultrasound, FES Patient Instruction Home Exercise Program Plan of Care Questions/Concerns Other Sensory Assessment Sensory Profile2 Functional Wrist/Hand Scan Hand Side OT Outpatient Muscle Testing Start: 02/13/18 09:50 Freq: Status: Active Protocol: Document 09/09/18 14:58 AMS (Rec: 09/09/18 15:03 AMS [email or web address]) Elbow/Forearm Strength Elbow and Forearm Manual Muscle Testing Right Pronation 5 Normal Supination 5 Normal Comments New measurements taken on 05/05 Left Pronation 5 Normal Supination 5 Normal Wrist Strength Wrist Manual Muscle Testing Right Flexion (C7) 4 Good Extension (C6) 4 Good Ulnar Deviation 4 Good Radial Deviation 5 Normal Comments Measurements re-taken 05/05/18 Left Flexion (C7) 5 Normal Extension (C6) 5 Normal Ulnar Deviation 5 Normal Radial Deviation 5 Normal Robot Designer/Hand Strength Robot Designer/Hand Strength Right Robot Designer Dynamometer II 63.3 Lateral Pinch Strengh (lbs) 13.7 Tip Pinch Strength (lbs) 6.3 Comments Lateral Hernandez Pinch: 30-34 Males R hand norms = 26.4 +/- 4.8 ( pounds) Tip Pinch: 30-34 Males R hand norms = 17.6 +/- 6.7 (pounds) Initial Robot Designer avg 23.3# of force Lat pinch 5.3# of force Tip pinch 3.0# of force Left Robot Designer Dynamometer II 107.3 Lateral Pinch Strengh (lbs) 23.3 Tip Pinch Strength (lbs) 15.0 Comments Lateral Hernandez Pinch: 30-34 Males L hand norms = 26.2 +/- 5.1 ( pounds) Tip Pinch: 30-34 Males L hand norms = 17.6 +/- 4.8 (pounds) OT Outpatient Treatment Note - Adult Start: 02/13/18 09:50 Freq: Status: Active Protocol: Document 09/09/18 14:58 AMS (Rec: 09/09/18 15:03 AMS [email or web address]) OT Outpatient Adult Treatment Note Visit Information Visit Number 10/20 Plan of Care Dates 05/08/18-07/31/18 Setting Treatment Setting Outpatient Care Visit Type Note Type Discharge Summary General Information General Information Pt is a 32 year-old male referred to outpatient OT status post complex migraine which led to residual weakness of the pt's dominant right upper extremity. Pt reported that he was unable to move his right arm for 3 days while being hospitalized at [facility]. He stated that 'he never lost sensation' of his right arm during this time. - Subjective Observations Patient has not been seen since 07/09/18. Thus, patient to be discharged. Chief Complaint(s) Restricts Loss of Function Moderate Degree Effect on Activity Moderate Degree Effect on Daily Life Moderate Degree Patient Expectation/Goals Improve function of right hand Patient/Caregiver Compliance with Home Excellent Exercise Program - Objective Objective Measurements Please see below for progress towards meeting established OT goals. Decreased graded control w/ resisted 4th/5th digit isolated motor planning; c/o more difficulty w/ executing w/ the 5th versus the 4th. Decreased tolerance for weight bearing through R wrist; decreased wrist stability noted w/ resisted TB exercises. Education completed on exercises to address wrist stability and re -distributing weight across hand versus isolated wrist to decrease discomfort w/ flat hand push-ups. Improving dissociation between digits of R hand (4th and 5th cont to be the 'most difficult'). 06/26/18 QuickDASH UE Outcome Measure Score = 38.64 QuickDASH UE Work Module Score = 43.75 QuickDASH UE Sports/Perfomring Arts Module Score = 50.00 ( guitar, quintero, violin, piano) 02/16/18 QuickDASH UE Outcome Measure Score = 47.73 QuickDASH UE Work Module Score = 50.00 QuickDASH UE Sports/Perfomring Arts Module Score = 56.25 ( guitar, quintero, violin, piano) Short Term Goals Patient has not been seen since 07/09/18. Thus, patient to be discharged. ALL GOALS DISCHARGED 09/09/18 1. Based on patient's verbal report, he will be able to open a tight/new jar with the right hand without difficulty on a daily basis. 06/29/18= 75 % met. 2. Patient will be able to weight shift L <-> R over top of the right hand in plank position x 10 consecutive repetitions, without locking of elbow in extension, without complaints of pain/discomfort and/or loss of balance. 06/26= 25% met GOALS MET Patient completed QuickDASH UE Questionnaire Measures. *MET 02/16/18 Pt completed 9-Hole Peg Test under 26.0 sec w/ the R hand. *MET 05/05/18 Pt able to execute PROM wrist flexion stretch, w/ elbow ext and forearm supinated, x 2 w/ hold of position x 3 sec w/ c/ o stiffness only in wrist. * MET 05/05/18 Custodian Blood Bank Goals Patient has not been seen since 07/09/18. Thus, patient to be discharged. ALL GOALS DISCHARGED 09/09/18 1. Based on patient's verbal report, patient will be able to play personal guitar x 5 minutes with modified independence utilizing pick positioned in the right hand. 06/26/18= 25% met 2. Patient will be able to complete the 9-Hole Peg Test with the right hand under 18.0 seconds. 05/05/18= GOAL UPGRADED 3. 5/5 MMT right wrist flexion . 05/05/18= 4/5 4. 5/5 MMT right wrist extension. 05/05/18= 4/5 5. Patient will be modified independent with distal UE home exercise program utilizing provided written and visual instructions from therapist. 06/26/18= 25% met; HEP upgraded GOALS MET 5/5 MMT R forearm supination. *MET 05/05/18 [ End ] - Assessment Assessment of Improvement Patient has not been seen since 07/09/18. Thus, patient to be discharged. - Plan Therapy Recommendations Discharge from Occupational Therapy Additional Therapy Recommendations Patient has not been seen since 07/09/18.
== END 2018-09-11 10:13 ==
LOC: OT 13:30
DX: G81.91 Hemiplegia, unspecified affecting right dominant side (principal)
CPT/HCPCS: 97035; 97110; 97112; 97140; 97166; 97530

== ENCOUNTER 2020-10-25 16:15 | Emergency (ER) | payer SELFPAY ==
[2020-10-25 16:22] VITALS: BP 154/84; PULSE 96; RESP 18; TEMP 37.1; O2SAT 99
[2020-10-25] MEDS: BUTALB/APAP/CAFFEINE 50/325/40 TABLET 1 EACH PO (16:25)
--- NOTE | 2020-10-25 16:39 | ED.HA ---
HPI - Headache <RENEA Isaac - Last Filed: 10/25/20 19:46> General Chief Complaint: Headache Stated Complaint: states hemapalegic migrains Time Seen by Provider: 10/25/20 16:19 Mode of arrival: Ambulatory History of Present Illness HPI Narrative: 35yo male with history of chronic migraines presents emergency department for migraine abortive medication. He states he has frequent migraines that, on suddenly and cause his right arm to be numb and affects motor skills. Patient states he usually has his medication with him, states that he takes she Fiorcet when the migraines common and this relieves them within an hour. However, he has about an hour away from home and did not have his medication with him. He states the onset of the headache was approximately an hour ago, he also experiences lightening flashes in both eyes bilaterally. Patient states it has been ongoing for a year, he states this is a very classic headache, no unusual symptoms, would just like his medication to help with the headache as if he does not taking in enough the headaches are prolonged. Review of Systems <RENEA Isaac - Last Filed: 10/25/20 19:46> Review of Systems Narrative: REVIEW OF SYSTEMS: GENERAL: Denies fever or chills. HENT: Reports headache, see HPI. EYES: No loss of vision, double vision, eye pain, or irritation. CARDIOVASCULAR: No chest pain. GASTROINTESTINAL: No nausea or vomiting. GENITOURINARY: No flank pain or dysuria. MUSCULOSKELETAL: Reports difficulty moving right arm, see HPI. INTEGUMENTARY: No rash. NEURO: No numbness or tingling. Patient History <RENEA Isaac - Last Filed: 10/25/20 19:46> Medical History Migraine Exam <RENEA Isaac - Last Filed: 10/25/20 19:46> Initial Vital Signs Initial Vital Signs: Vital Signs Temperature 98.8 F 10/25/20 16:22 Pulse Rate 96 H 10/25/20 16:22 Respiratory Rate 18 10/25/20 16:22 Blood Pressure 154/84 H 10/25/20 16:22 Pulse Oximetry 99 10/25/20 16:22 PHYSICAL EXAMINATION: GENERAL: Awake and alert. HENT: Normocephalic. Ear canals patent. Oral mucosa is pink and moist. EYES: PERRLA, EOMIs, conjunctiva pink, sclera white, no periorbital swelling. NECK: Full ROM, no midline or spinal tenderness. CARDIOVASCULAR: S1 and S2 sounds normal. Regular rate and rhythm, no murmurs, clicks, or bruits. RESPIRATORY: Normal respiratory rate, trachea midline, airway patent. No stridor, nasal flaring or accessory muscle use. Lungs are clear in all de leon without wheeze, rhonchi, or crackles. MUSCULOSKELETAL: Normal gait and coordination. Equal tone and mass bilaterally. Equal strength bilaterally to upper and lower extremities. Patient initially had decreased right arm movement, however, approximately 20 minutes after medication administration, patient had full range of motion of right and left arm. Equal egg breaking machine operator strength bilaterally. EXTREMITIES: CMS intact. SKIN: Warm, dry, soft, appropriate color for ethnicity. No lesions, rashes, or wounds to visualized areas. NEURO: Alert and Oriented X 3. GCS: 15. Good coordination. No ataxia, or sensory deficits, or cognitive issues. Cranial Nerves: II: Visual de leon grossly intact. III & IV & : EOMIs V: Able to open and close jaw. VII: Facial movements symetrical. Able to close eyelids tightly. VIII: Hearing grossly intact, adequate balance. X: Uvula pronation intact. XI: Patient is able to shrug shoulders. XII: Patient is able to stick out tongue and move it side to side. PSYCH: Appropriate affect and mood. <Aleks Spangler DO - Last Filed: 10/26/20 06:54> Initial Vital Signs Initial Vital Signs: Vital Signs Temperature 98.8 F 10/25/20 16:22 Pulse Rate 96 H 10/25/20 16:22 Respiratory Rate 18 10/25/20 16:22 Blood Pressure 154/84 H 10/25/20 16:22 Pulse Oximetry 99 10/25/20 16:22 Course <RENEA Isaac - Last Filed: 10/25/20 19:46> Orders Ordered: Discontinued Medications Acetaminophen/Butalbital/Caffeine (Butalb/Apap/Caffeine 50/325/40 Tablet) 1 each PO NOW ONE Stop: 10/25/20 16:23 Last Admin: 10/25/20 16:25 Dose: 1 each Documented by: LACEY Vital Signs Vital signs: Vital Signs - 8 hr 10/25/20 16:22 Temperature 98.8 F Pulse Rate 96 H Respiratory Rate 18 Blood Pressure 154/84 H Pulse Oximetry 99 <Aleks Spangler DO - Last Filed: 10/26/20 06:54> Orders Ordered: Discontinued Medications Acetaminophen/Butalbital/Caffeine (Butalb/Apap/Caffeine 50/325/40 Tablet) 1 each PO NOW ONE Stop: 10/25/20 16:23 Last Admin: 10/25/20 16:25 Dose: 1 each Documented by: LACEY Vital Signs Vital signs: Vital Signs - 8 hr 10/25/20 16:22 Temperature 98.8 F Pulse Rate 96 H Respiratory Rate 18 Blood Pressure 154/84 H Pulse Oximetry 99 MDM - Headache <RENEA Isaac - Last Filed: 10/25/20 19:46> Medical Records Attestation: I reviewed the patient's medical records. Lab Data Attestation: I reviewed the patient's lab results. [facility] Narrative Medical decision making narrative: 35-year-old male presenting to the emergency department for a classic migraine, patient has a history of migraines that cause motor issues to his right side, this is very consistent. However, he presented to the ER because he forgot his abortive headache therapy, if he does not taken quickly the headache is prolonged. Patient was given Fioricet as he states that is what works for him. Within approximately 20 minutes, patient's symptoms were significantly resolving, in full range of motion of an equal egg breaking machine operator strength bilaterally to upper and lower extremities. Less concern stroke given this patient's history and other neuro exam findings within normal limits. Return precautions given for new or worsening symptoms. He agreed to plan of care and verbalized understanding Discharge Plan Departure Patient Disposition: Home Clinical Impression: Headache Qualifiers: Headache type: unspecified Headache chronicity pattern: unspecified pattern Intractability: not intractable Qualified Code(s): R51.9 - Headache, unspecified Instructions: DI for Headache Activity Restrictions/Additional Instructions: Thank you for entrusting me with your care today. As discussed, your provided medication for headache. Please follow-up with your neurologist as recommended. Return emergency department for any new or worsening symptoms. Referrals: Alverto Watson MD [Primary Care Provider] - <Aleks Spangler DO - Last Filed: 10/26/20 06:54> Cosign ED Attending Cosignature Attestation: Dr Spangler Co-Sign Statement: I was available for consultation during this patient's emergency department visit. This chart is signed by myself for administrative purposes only. I did not have direct contact with this patient during this visit. They were seen independently by the APC.
== END 2020-10-25 17:17 | disposition home or self-care (01) ==
PROVIDERS: Emergency Provider Nurse Practitioner
DX: R51.9 Headache, unspecified (principal)
CPT/HCPCS: 99283

== ENCOUNTER 2023-03-24 23:10 | Emergency (ER) | payer SELFPAY ==
--- NOTE | 2023-03-24 23:14 | ED_ITS ---
HPI - General Adult General Chief complaint: Skin/Abscess/Foreign Body Stated complaint: possible broken right foot Time Seen by Provider: 03/24/23 23:14 History of Present Illness HPI narrative: 37-year-old male smoker without chronic medical history presents with a chief complaint of a few days of pain, redness and swelling on his medial right foot. He denies any injury but does state he has been wearing some new boots. He has significant pain with ambulation and improvement with rest. Denies any foreign body. He denies any systemic complaints such as fever, chills nor nausea or vomiting. Related Data Previous Rx's Medication Instructions Recorded doxycycline hyclate 100 mg tablet 100 mg PO BID #20 tabs 03/25/23 Allergies Allergy/AdvReac Type Severity Reaction Status Date / Time Penicillins Allergy Anaphylaxis Verified 03/24/23 23:15 codeine AdvReac Vomiting Verified 03/24/23 23:15 Review of Systems Review of Systems Narrative: GENERAL: Denies chills, fatigue, malaise, fever, sweats. HEENT: Denies sinus pain, ear pain, sore throat, difficulty swallowing, dizziness. RESPIRATORY: Denies dyspnea, cough, wheezing, hemoptysis, sputum. CARDIOVASCULAR: Denies chest pain, palpitations, orthopnea, edema, GASTROINTESTINAL: Denies nausea, vomiting, abdominal pain, diarrhea, constipation, melena. : Denies dysuria, frequency, incontinence, hematuria, urinary retention. MUSCULOSKELETAL: See HPI SKIN: See HPI NEUROLOGIC: Denies weakness, headache, numbness, change in speech, confusion, seizures, incoordination. PSYCHIATRIC: No concerning psychosocial issues. 12 point review of systems is negative except for those stated above Patient History Medical History Migraine Social History Smoking Status: Current every day smoker Exam Narrative Exam Narrative: GEN: AOx3 and in mild distress EYES: Pupils are equal, round, and reactive to light and accommodation. Extraoccular muscles are intact bilaterally. There is no subconjunctival hemorrhage or exudate. CHEST: Lungs are clear to auscultation bilaterally and free of wheezes, rales, or rhonchi. Heart rate is regular rhythm, there are no murmurs, clicks, rubs, or gallops. There is no chest wall tenderness. ABD: Abdomen is soft and nontender. There is no guarding or rebound. Bowel sounds are normal in all 4 quadrants. There is no mass or organomegaly. EXT: Right medial foot, just inferior to the malleolus with erythema, induration and some fluctuance, no obvious drainage or break in the skin, most consistent with an infectious process SKIN: Warm, pink, and dry. No erythema or rash Initial Vital Signs Initial Vital Signs: Vital Signs Temperature 98.9 F 03/24/23 23:15 Pulse Rate 101 H 03/24/23 23:15 Respiratory Rate 18 03/24/23 23:15 Blood Pressure 145/91 H 03/24/23 23:15 Pulse Oximetry 96 03/24/23 23:15 Oxygen Delivery Method Room Air 03/24/23 23:15 Procedures Abscess I/D I&D #1: Site: foot Side (if applicable): right Local Anesthetic: lidocaine 1% Amount of anesthesia used (mL): 4 Technique: incised with #11 blade Amount of fluid expressed (mL): 8 Irrigation: Yes Packing used?: none Course Orders Ordered: ED Orders 03/25/23 00:08 XR foot RT min 3V Stat 03/25/23 00:45 Wound Culture and Gram Stain Stat Discontinued Medications Hydrocodone Bitart/Acetaminophen (Hydrocodone/Acet 5/325 Prepack) 1 bottle MISC SEEINSTR ONE Stop: 03/25/23 00:09 Last Admin: 03/25/23 00:22 Dose: 1 bottle Documented By: SANTO Doxycycline Hyclate (Doxycycline Hyclate 100 Mg Tablet) 100 mg PO NOW ONE Stop: 03/25/23 00:09 Last Admin: 03/25/23 00:21 Dose: 100 mg Documented By: SANTO Vital Signs Vital signs: Vital Signs - 8 hr 03/24/23 23:15 Temperature 98.9 F Pulse Rate 101 H Respiratory Rate 18 Blood Pressure 145/91 H Pulse Oximetry 96 Oxygen Delivery Method Room Air Medical Decision Making [facility] Narrative Medical decision making narrative: [37] year old patient presents with right foot pain, redness Multiple etiologies for patient's symptoms considered including, but not limited to: Cellulitis versus abscess versus retained foreign body versus other [] Prior Charts reviewed in our EMR Primary Historian: patient Labs reviewed and interpreted by myself: Wound culture pending Imaging reviewed: Foot x-ray without obvious retained foreign body Patient's symptoms improved over duration of stay with above-stated therapies. Findings and discharge diagnosis discussed with patient/family followed by verbalization of understanding Return precautions discussed with patient/family whom verbalize understanding of diagnosis and plan Discharge Plan Departure Patient Disposition: Home Clinical Impression: Abscess of skin or subcutaneous tissue, Cellulitis Instructions: DI for Skin Abscess Activity Restrictions/Additional Instructions: *You have been diagnosed with [right foot abscess with surrounding cellulitis.] *What to do: *Please continue to take your regular medications as directed. [ x] New medication prescriptions sent to your pharmacy: [[facility] in [place] ] [ ] New medication written as a paper prescription [ ] No new medications given *Please follow up with your primary care provider in 2-3 days, call for an appointment. Let them know you were seen in the Emergency Department and that we ask that you be seen in follow up. We will electronically transmit a record of today's note if your PCP is in our system * as we discussed, please consider soaking your right foot in warm water with Epsom salts twice daily for the next 5 days or so *If you do not have a primary care provider please contact the [facility] Resource line at [phone]. They will ask some questions about your medical history and help get you set up with a doctor in the community. *Return to Emergency Department if you should have any new, worsening or concerning symptoms, such as [fever greater than 101 F, shaking chills, worsening pain, persistent vomiting or other bothersome symptoms] Prescriptions: New doxycycline hyclate 100 mg tablet 100 mg PO BID Qty: 20 0RF Referrals: Alverto Watson MD [Primary Care Provider] - Stand Alone Forms: Patient Portal/API
[2023-03-24 23:15] VITALS: BP 145/91; PULSE 101; RESP 18; TEMP 37.2; O2SAT 96; BMI 29.3
--- NOTE | 2023-03-25 00:08 | DI.RAD.S_ITS ---
PROCEDURE: XR FOOT RT MIN 3V INDICATIONS: pain, redness, swelling, FB? osteo? TECHNIQUE: 3 views of the foot were acquired. COMPARISON: None. FINDINGS: Bones: No fractures or dislocations. No discrete bony erosions or periosteal reaction. No suspicious bony lesions. Soft tissues: No radiopaque foreign bodies. There is a small tibiotalar joint effusion. IMPRESSION: 1. No fracture or dislocation. 2. No radiopaque foreign bodies. 3. No radiographic evidence of osteomyelitis. Dictated by: Collins Grace M.D. on 03/25/2023 at 1:14 Approved by: Collins Grace M.D. on 03/25/2023 at 1:15
[2023-03-25] MEDS: DOXYCYCLINE HYCLATE 100 MG TABLET PO (00:21)
[2023-03-25] MEDS: HYDROCODONE/ACET 5/325 PREPACK 1 BOTTLE MISC (00:22)
[2023-03-25] MEDS: IBUPROFEN 400 MG TABLET 800 MG PO (01:08)
[2023-03-25 01:20] VITALS: BP 134/82; PULSE 80; RESP 16; TEMP 36.4; O2SAT 97
== END 2023-03-25 01:21 | disposition home or self-care (01) ==
PROVIDERS: Emergency Provider Emergency Medicine
DX: L02.611 Cutaneous abscess of right foot (principal); L03.115 Cellulitis of right lower limb
CPT/HCPCS: 10060; 73630; 87070; 87075; 87077; 87147; 87186; 87205; 99283